=== PATIENT | female | born 1955 | race Caucasian/White ===

== ENCOUNTER 2024-12-30 01:36 | Emergency (ER) | payer MEDICARE, OTHER ==
[~2024-12-30] VITALS: Ht 160 cm; Wt 71.0 kg
[2024-12-30] MEDS: ONDANSETRON HCL 4 MG/2 ML VIAL IV ONE (01:33)
[2024-12-30] MEDS: SODIUM CHLORIDE 0.9% 1,000 ML IVB ONE (01:33)
[2024-12-30 01:34] LABS: Hematocrit 31.0 % (36.0-46.0); Hemoglobin 9.8 g/dL (12.2-16.2); Mean Corpuscular Hemoglobin 22.4 pg (28.0-32.0); Mean Corpuscular Volume 70.7 fL (80.0-100.0)
[2024-12-30 01:40] VITALS: O2SAT 98
[2024-12-30 01:49] LABS: Alanine Aminotransferase 13 U/L (7-40); Albumin 4.3 g/dL (3.2-4.8); Alkaline Phosphatase 115 U/L (46-116); Anion Gap 14 (5-15); BUN/Creatinine Ratio 25.3 (10.0-20.0); Bilirubin, Total 0.5 mg/dL (0.2-1.0); Blood Urea Nitrogen 19 mg/dL (9-23); Calcium 9.4 mg/dL (8.7-10.4); Chloride 100 mmol/L (98-107); Lipase 41 U/L (12-53); Potassium 3.8 mmol/L (3.5-5.1); Total Protein 7.0 g/dL (5.7-8.2)
[2024-12-30 01:50] LABS: Carbon Dioxide 19 mmol/L (20-31); Glucose 126 mg/dL (74-106); Sodium 133 mmol/L (136-145)
--- NOTE | 2024-12-30 01:54 | ED.PDOC ---
GI ASSESSMENT HPI Comments 69-year-old female who came to ER via EMS for abdominal pain. Patient states for the past few hours, she has been having intermittent episodes of suprapubic abdominal pain, associated nausea and vomiting. She states she is constipated, bowel movement was 2 days ago. Around 12 midnight she started having bouts of non bloody diarrhea. 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 Hx Family History Family History: Reviewed,noncontributory to illness Social History Smoker: Non-Smoker Alcohol: Denies ETOH Use Drugs: Denies Drug Use Lives In: Home Constitutional: denies: chills, diaphoresis, fatigue, fever, malaise, sweats, weakness, others EENTM: denies: blurred vision, double vision, ear bleeding, ear discharge, ear drainage, ear pain, ear ringing, eye pain, eye redness, hearing loss, mouth pain, mouth swelling, nasal discharge, nose bleeding, nose congestion, nose pain, photophobia, tearing, throat pain, throat swelling, voice changes, others Respiratory: denies: cough, hemoptysis, orthopnea, SOB at rest, shortness of breath, SOB with excertion, stridor, wheezing, others Cardiovascular: denies: chest pain, dizzy spells, diaphoresis, Dyspnea on exer tion, edema, irregular heart beat, left arm pain, lightheadedness, palpitations, PND, syncope, others Gastrointestinal: reports: abdominal pain, constipated, nausea, vomiting; denies: abdomen distended, blood streaked bowels, diarrhea, dysphagia, difficulty swallowing, hematemesis, melena, poor appetite, poor fluid intake, rectal bleeding, rectal pain, others Genitourinary: denies: abnormal vagina bleeding, burning, dyspareunia, dysuria, flank pain, frequency, hematuria, incontinence, pain, , vagina discharge, urgency, others Neurological: denies: dizziness, fainting, headache, left sided numbness, left sided weakness, numbness, paresthesia, pre-existing deficit, right sided numbness, right sided weakness, seizure, speech problems, tingling, tremors, weakness, others Musculoskeletal: denies: back pain, gout, joint pain, joint swelling, muscle pain, muscle stiffness, neck pain, others Integumetry: denies: bruises, change in color, change in hair/nails, dryness, laceration, lesions, lumps, rash, wounds, others Allergic/Immunocompromised: denies: Difficulty Healing, Frequent Infections, Hives, Itching, others Hematologic/Lymphatic: denies: anemia, blood clots, easy bleeding, easy bruising, swollen glands, others Endocrine: denies: excessive hunger, excessive sweating, excessive thirst, excessive urination, flushing, intolerance to cold, intolerance to heat, unexplained weight gain, unexplained weight loss, others Psychiatric: denies: anxiety, bipolar disorder, depression, hopeless, panic disorder, schizophrenia, sleepless, suicidal, others Physical Exam General Appearance: No Apparent Distress, Normal HEENT: Normal ENT Inspection, Pharynx Normal, TMs Normal Neck: Full Range of Motion, Non-Tender, Normal, Normal Inspection Respiratory: Chest Non-Tender, Lungs Clear, No Accessory Muscle Use, No Respiratory Distress, Normal Breath Sounds Cardiovascular: No Edema, No JVD, No Murmur, No Gallop, Normal Peripheral Pulses, Regular Rate/Rhythm Breast Exam: Deferred Gastrointestinal: No Organomegaly, No Pulsatile Mass, Normal Bowel Sounds, Soft, Suprapubic, Tenderness Genitalia: Deferred Pelvic: Deferred Rectal: Deferred Extremities: No calf tenderness, Normal capillary refill, Normal inspection, Normal range of motion, Non-tender, No pedal edema Musculoskeletal : Apperance: Normal Neurologic: Alert, research coordinator II-XII nml as Tested, No Motor Deficits, Normal Affect, Normal Mood, No Sensory Deficits Cerebellar Function: Normal Reflexes: Normal Skin: Dry, Normal Color, Warm Lymphatic: No Adenopathy Was a procedure done? Was a procedure done?: No GI differential Dx Differential Diagnosis: Constipation, Diverticular disease, Gastritis/PUD, Gastroenteritis, Pancreatitis, UTI, Urolithiasis X-Ray, Labs, Meds, VS Vital Signs Date Time Temp Pulse Resp B/P (MAP) Pulse Ox O2 Delivery O2 Flow Rate FiO2 12/30/24 01:40 98 Room Air* 0 21 12/30/24 01:37 98.4 62 18 152/72 100 98.4 12/30/24 01:31 98.3 62 16 143/71 (95) 98 98.3 Lab Test 12/30/24 01:55 12/30/24 01:30 Range/Units White Blood Count 12.5 H 4.4-10.8 10^3/uL Red Blood Count 4.38 4.0-5.20 10^6/uL Hemoglobin 9.8 L 12.2-16.2 g/dL Hematocrit 31.0 L 36.0-46.0 % Mean Corpuscular Volume 70.7 L 80.0-100.0 fL Mean Corpuscular Hemoglobin 22.4 L 28.0-32.0 pg Mean Corpuscular Hemoglobin Concent 31.7 L 32.0-36.0 g/dL Red Cell Distribution Width 16.6 H 11.8-14.3 % Platelet Count 411 140-450 10^3/uL Mean Platelet Volume 7.8 6.9-10.8 fL Neutrophils (%) (Auto) 87.6 H 37.0-80.0 % Lymphocytes (%) (Auto) 8.6 L 10.0-50.0 % Monocytes (%) (Auto) 3.6 0.0-12.0 % Basophils (%) (Auto) 0.2 0.0-2.0 % Neutrophils # (Auto) 11.0 H 1.6-8.6 10 ^3/uL Lymphocytes # (Auto) 1.1 0.4-5.4 10 ^3/uL Monocytes # (Auto) 0.5 0-1.3 10 ^3/uL Sodium Level 133 L 136-145 mmol/L Potassium Level 3.8 3.5-5.1 mmol/L Chloride Level 100 98-107 mmol/L Carbon Dioxide Level 19 L 20-31 mmol/L Anion Gap 14 5-15 Blood Urea Nitrogen 19 9-23 mg/dL Creatinine 0.75 0.550-1.02 mg/dL Glomerular Filtration Rate Calc 86 >90 mL/min BUN/Creatinine Ratio 25.3 H 10.0-20.0 Serum Glucose 126 H 74-106 mg/dL Calcium Level 9.4 8.7-10.4 mg/dL Total Bilirubin 0.5 0.2-1.0 mg/dL Aspartate Amino Transferase (AST) 18 13-40 U/L Alanine Aminotransferase (ALT) 13 7-40 U/L Alkaline Phosphatase 115 46-116 U/L Total Protein 7.0 5.7-8.2 g/dL Albumin 4.3 3.2-4.8 g/dL Lipase 41 12-53 U/L Urine Color Light-orange Yellow Urine Clarity Turbid H Clear Urine pH 8.0 5.0-9.0 Urine Specific [place] 1.020 1.001-1.035 Urine Protein Negative Negative Urine Ketones 2+ H Negative Urine Blood Negative Negative /uL Urine Nitrite Negative Negative Urine Bilirubin Negative Negative Urine Urobilinogen Normal Negative mg/dL Urine Leukocyte Esterase Negative Negative /uL Urine RBC None seen 0 - 4 /hpf Urine Microscopic WBC < 1 0-5 /HPF Urine Squamous Epithelial Cells None seen <5 /hpf Urine Amorphous Crystals Few None Seen /hpf Urine Bacteria None seen None Seen /hpf Urine Glucose Normal Normal mg/dL Current Medications Medications (Trade) Dose Ordered Sig/Jo Route Start Time Stop Time Status Last Admin Sodium Chloride 1,000 ml @ 1,000 mls/hr Q1H ONCE IVB 12/30/24 02:00 12/30/24 02:59 DC 12/30/24 01:33 Lorazepam (Ativan Tablet) 0.5 mg ONCE ONCE PO 12/30/24 02:45 12/30/24 02:46 DC 12/30/24 02:46 Acetaminophen/ Hydrocodone Bitart ([place] 5/325MG Tab) 1 tab ONCE ONCE PO 12/30/24 02:45 12/30/24 02:46 DC 12/30/24 02:46 Time of 1ST Reevaluation: 01:50 Reevaluation 1ST: Unchanged Patient Education/Counseling: Diagnosis, Treatment Family Education/Counseling: No Family Present SEPSIS Sepsis Screen Physician Orders Ct Ab Pel With Iv Con Only (12/30/24 01:48) Vital Signs Date Time Temp Pulse Resp B/P (MAP) Pulse Ox O2 Delivery O2 Flow Rate FiO2 12/30/24 01:40 98 Room Air* 0 21 12/30/24 01:37 98.4 62 18 152/72 100 98.4 12/30/24 01:31 98.3 62 16 143/71 (95) 98 98.3 Laboratory Tests Test 12/30/24 01:55 White Blood Count 12.5 10^3/uL (4.4-10.8) H Medications Medications Dose Ordered Sig/Jo Route Start Time Stop Time Status Last Admin Dose Admin Acetaminophen/ Hydrocodone Bitart 1 tab ONCE ONCE PO 12/30/24 02:45 12/30/24 02:46 DC 12/30/24 02:46 Lorazepam 0.5 mg ONCE ONCE PO 12/30/24 02:45 12/30/24 02:46 DC 12/30/24 02:46 Sodium Chloride 1,000 ml @ 1,000 mls/hr Q1H ONCE IVB 12/30/24 02:00 12/30/24 02:59 DC 12/30/24 01:33 Departure 1 Departure Time of Disposition: 04:18 Impression: Primary Impression: Non-specific colitis Additional Impressions: Intractable abdominal pain Nausea and vomiting Dehydration Disposition: ADMITTED INPATIENT Admit to: Med Surg Condition: Guarded Discharged With: Self Comments 69-year-old female with abdominal pain and nausea and vomiting. White blood cell count is elevated 12.5 . She has ketones in her urine. CT of the abdomen and pelvis shows colitis. She has some gallstones but no right upper quadrant pain or tenderness. Patient was given IV fluids and IV antibiotics. Patient will need to be admitted for supportive care and further workup. Critical Care Note Critical Care Time?: Yes (35 min-critical care time only) Critical care comment: Total critical care time: Approximately 36 minutes Due to a high probability of clinically significant, life threatening deterioration, the patient required my highest level of preparedness to intervene emergently and I personally spent this critical care time directly and personally managing the patient. This critical care time included obtaining a history; examining the patient; pulse oximetry; ordering and review of studies; arranging urgent treatment with development of a management plan; evaluation of patient's response to treatment; frequent reassessment; and, discussions with other providers. This critical care time was performed to assess and manage the high probability of imminent, life-threatening deterioration that could result in multi-organ failure. It was exclusive of separately billable procedures and treating other patients. Stability Stability form required: No Heart Score Heart Score: Heart Score Response (Comments) Value History N/A 0 EKG N/A 0 Age N/A 0 Risk Factors N/A 0 Troponin N/A 0 Total 0 I personally scribed for GERALDO AVILEZ MD ([email or web address]) on 12/30/24 at 01:54. Electronically submitted by Davide Estrella ([email or web address]). GERALDO AVILEZ MD Dec 30, 2024 01:54
[2024-12-30] MEDS: IOHEXOL 300 MG/ML 100ML BOTTLE IJ ONE ×2 (02:24)
[2024-12-30 02:26] LABS: Urine Amorphous Crystal FEW /hpf (None Seen); Urine Protein, UAD Negative (Negative)
[2024-12-30] MEDS: LORazepam 0.5 MG TAB PO ONE (02:46)
[2024-12-30] MEDS: HYDROcodone-ACET 5/325MG TAB PO ONE (02:46)
--- NOTE | 2024-12-30 03:52 | DVH ---
Exam: CT CT AB PEL WITH IV CON ONLY History: LLQ pain COMPARISON: None Technique: Multidetector spiral CT of the abdomen and pelvis was performed from lung bases to pubic s ymphysis. Intravenous contrast was administered during this examination. Portal venous imaging was o btained. Axial, coronal and sagittal multiplanar reformats were performed by the technologist on a [employer] workstation. Radiation Dose : 1. Abdomen/Pelvis: CTDIvol 21.47mGy, DLP 1225.34 mGy*cm. CONTRAST: Type of contrast: Omnipaque 300 Contrast injected: 100 ml Findings: Lung Bases: No acute or significant lung base finding. Normal heart size. No pleural or pericardial effusion. Liver: The liver is normal in size. 7 mm hepatic cyst. No focal lesions. Normal hepatic vascular en hancement. Gallbladder and Biliary Tree: Cholelithiasis. Spleen: Unremarkable Pancreas: The pancreas is normal in appearance without focal lesions or abnormal enhancement. Adrenal Glands: Unremarkable Kidneys: No hydronephrosis. Bladder: Unremarkable Bowel: The stomach is grossly normal in appearance. Small bowel is normal in caliber and distribution . Moderate diffuse circumferential wall thickening and intramural edema of the descending and sigmoid colon extending to and involving the rectum consistent with colitis and/or proctitis. The appendix i s normal. Ascites: Absent Lymphadenopathy: No mesenteric, retroperitoneal or periportal lymphadenopathy. Abdominal Wall and Mesentery: Unremarkable. Vasculature: The visualized abdominal aorta is normal in size and caliber. Atherosclerotic vascular c alcifications. Abdominal and pelvic vessels demonstrate normal enhancement. Pelvic Organs: Unremarkable Musculoskeletal: No aggressive focal bony lesions, acute fractures or dislocation. IMPRESSION: 1. Colitis, infectious versus inflammatory, of the descending and sigmoid colon and proctitis. 2. Cholelithiasis. Radiation optimization: All CT scans at this facility use at least one of these dose optimization lis hniques: automated exposure control mA and/or kV adjustment per patient size (includes targeted exam s where dose is matched to clinical indication) or iterative reconstruction.
--- NOTE | 2024-12-30 06:37 | DVHINCON2 ---
LIZZ MEREDITH [employer] 12/30/24 0637: Date of service: Dec 30, [address] Araiza Reason for Consultation Medical management History of Present Illness 69-year-old Female presents with complaints of abdominal pain three weeks due to constipation. Patient endorses she was prescribed laxatives by her PCP which caused diarrhea last night. Patient endorses she was feeling nauseous when she was constipated. At this time, patient has not been taking antibiotics. Denies tarry stools or hematochezia. During the emergency department evaluation W 12.5, H&H 9.8/31.0, [id number]. NA 133, K3.8, BUN 19, 0.75, GFR 86. LA 1.1 UA negative for infection. Patient endorses as she lives with roommates. Upon standing up, denies dizziness, and was able to stand up independently. Has been hemodynamically stable since she arrived in the emergency department. There are no complaints of fevers, chills, shortness of breath, chest, pain, palpitations. Allergies: Coded Allergies: NO KNOWN ALLERGIES (Unverified , 12/30/24) Home Meds Active Scripts Levofloxacin Hemihydrate (LEVAQUIN 500 MG) 500 Mg Tab, 500 MG PO DAILY for 5 Days, #5 TAB Prov:LIZZ MEREDITH [employer] 12/30/24 Review of Systems 10 systems reviewed and negative, except as per HPI Vital Signs Vital Signs Date Time Temp Pulse Resp B/P (MAP) Pulse Ox O2 Delivery O2 Flow Rate FiO2 12/30/24 04:00 70 146/74 (98) 91 12/30/24 01:40 Room Air* 0 21 12/30/24 01:37 98.4 18 98.4 Physical Exam GENERAL: Patient appearing stated age, in no acute distress. HEENT: Pupils equal and reactive to light and accommodation. Extraocular muscles intact. Mucous membranes moist. Conjunctivae pink. Anicteric sclerae. LUNGS: Bilateral air entry. No wheezes, rhonchi or rales. HEART: Regular rate and rhythm. Normal S1 and S2. ABDOMEN: BS normoactive, soft, nontender, and nondistended. No CVA tenderness. EXTREMITIES: No clubbing, cyanosis, edema. No calf tenderness. Pedal pulses 2+. NEUROLOGICAL: The patient is alert and oriented times 3. CN II-XII intact. No focal deficits on gross sensory or motor examination. Labs/Diagnostic Data Labs Test 12/30/24 04:40 12/30/24 01:55 12/30/24 01:30 Range/Units Lactic Acid Level 1.1 0.4-2.0 mmol/L White Blood Count 12.5 H 4.4-10.8 10^3/uL Red Blood Count 4.38 4.0-5.20 10^6/uL Hemoglobin 9.8 L 12.2-16.2 g/dL Hematocrit 31.0 L 36.0-46.0 % Mean Corpuscular Volume 70.7 L 80.0-100.0 fL Mean Corpuscular Hemoglobin 22.4 L 28.0-32.0 pg Mean Corpuscular Hemoglobin Concent 31.7 L 32.0-36.0 g/dL Red Cell Distribution Width 16.6 H 11.8-14.3 % Platelet Count 411 140-450 10^3/uL Mean Platelet Volume 7.8 6.9-10.8 fL Neutrophils (%) (Auto) 87.6 H 37.0-80.0 % Lymphocytes (%) (Auto) 8.6 L 10.0-50.0 % Monocytes (%) (Auto) 3.6 0.0-12.0 % Basophils (%) (Auto) 0.2 0.0-2.0 % Neutrophils # (Auto) 11.0 H 1.6-8.6 10 ^3/uL Lymphocytes # (Auto) 1.1 0.4-5.4 10 ^3/uL Monocytes # (Auto) 0.5 0-1.3 10 ^3/uL Sodium Level 133 L 136-145 mmol/L Potassium Level 3.8 3.5-5.1 mmol/L Chloride Level 100 98-107 mmol/L Carbon Dioxide Level 19 L 20-31 mmol/L Anion Gap 14 5-15 Blood Urea Nitrogen 19 9-23 mg/dL Creatinine 0.75 0.550-1.02 mg/dL Glomerular Filtration Rate Calc 86 >90 mL/min BUN/Creatinine Ratio 25.3 H 10.0-20.0 Serum Glucose 126 H 74-106 mg/dL Calcium Level 9.4 8.7-10.4 mg/dL Total Bilirubin 0.5 0.2-1.0 mg/dL Aspartate Amino Transferase (AST) 18 13-40 U/L Alanine Aminotransferase (ALT) 13 7-40 U/L Alkaline Phosphatase 115 46-116 U/L Total Protein 7.0 5.7-8.2 g/dL Albumin 4.3 3.2-4.8 g/dL Lipase 41 12-53 U/L Urine Color Light-orange Yellow Urine Clarity Turbid H Clear Urine pH 8.0 5.0-9.0 Urine Specific [place] 1.020 1.001-1.035 Urine Protein Negative Negative Urine Ketones 2+ H Negative Urine Blood Negative Negative /uL Urine Nitrite Negative Negative Urine Bilirubin Negative Negative Urine Urobilinogen Normal Negative mg/dL Urine Leukocyte Esterase Negative Negative /uL Urine RBC None seen 0 - 4 /hpf Urine Microscopic WBC < 1 0-5 /HPF Urine Squamous Epithelial Cells None seen <5 /hpf Urine Amorphous Crystals Few None Seen /hpf Urine Bacteria None seen None Seen /hpf Urine Glucose Normal Normal mg/dL Assessment Colitis / Proctitis Anemia This patients chart was reviewed in its entirety, including lab work, imaging, physical assessment, history taking. During the emergency department evaluation CBC W 12.5, H&H 9.8/31.0, PLT 411. Na 133, K3.8, BUN 19, creatinine 0.75, GFR 86, LA 1.1. UA negative for infection. CT of the abdomen and pelvis was interpreted per the radiologist and reviewed per myself. Impression reads colitis, infectious versus inflammatory, of the descending and sigmoid colon, proctitis. Patient is alert and oriented times four. Hemodynamically stable. Afebrile 98.4. BP 128/63, HR 60, oxygen saturation 98% on room air. Is able to stand independently with no complaints of dizziness. Currently endorsed that she lives with roommates. Patient has been experiencing constipation over the previous month. When I spoke to the patient, she states that her diarrhea was caused by stool softeners (red gel cap) that were prescribed by her PCP. And l ast time she felt nauseous was with constipation. Additionally, there have been no complaints of black Tarry stool or hematochezia. While in the emergency department was treated with 1 L normal saline bolus along with a dose of Flagyl and Rocephin IV. She's also given oral Ativan and [place] for her anxiety and pain. Plan/Recommendation At this time, I discussed outpatient management with a patient which she is in agreement with. The patient will be discharged home from the emergency depa rtment with close outpatient follow up. O employment case manager, Pattie has been consulted to establish home safety evaluation, outpatient follow up with gastroenterology, follow up at [facility] urgent care for repeat labs CBC for anemia and BMP. The patient was advised to increase her fiber and water intake to prevent constipation. Also, given the finding of proctitis, I did send a prescription to her pharmacy for oral anabiotic. The patient was provided with strict ER precautions, including, but not limited to fever, chills, dizziness, shortness of breath, chest, pain, palpitations, nausea, vomiting, continue diarrhea, hematemesis, hematochezia, melena. If any of these occur return to the nearest emergency department for further evaluation and treatment. Plan discussed with: Patient ABBY WALLER MD 01/01/25 1628: Allergies: Coded Allergies: NO KNOWN ALLERGIES (Unverified , 12/30/24) Home Meds Active Scripts Levofloxacin Hemihydrate (LEVAQUIN 500 MG) 500 Mg Tab, 500 MG PO DAILY for 5 Days, #5 TAB Prov:LIZZ MEREDITH NP 12/30/24 Additional Comments Additional Comments Additional Comments Patient's chart is reviewed and discussed with the nurse practitioner. Patient is seen and evaluated by [employer] in the ER and I agree with his evaluation, documentation, assessment and care plan as outlined. LIZZ MEREDITH NP Dec 30, 2024 06:37 ABBY WALLER MD Jan 01, 2025 16:28
[2024-12-30] MEDS ORDERED: LEVO500T91 PO (06:40)
[2024-12-30 08:42] VITALS: BP 135/74; PULSE 60; RESP 18; TEMP 98.4; O2SAT 99
== END 2024-12-30 08:49 | disposition home or self-care (01) ==
LOC: ER 01:36 → EDBD 01:36 → ER 08:49
DX: K52.9 Noninfective gastroenteritis and colitis, unspecified (principal); R11.2 Nausea with vomiting, unspecified; R10.9 Unspecified abdominal pain; E86.0 Dehydration; F41.9 Anxiety disorder, unspecified; E78.5 Hyperlipidemia, unspecified
CPT/HCPCS: 36415; 74177; 80053; 81001; 83605; 83690; 85025; 87040; 96361; 96365; 96366; 96368; 99285; J0696; J3490; J7030; Q9967; 99291

== ENCOUNTER 2025-01-06 07:14 | Inpatient (IN) | payer OTHER ==
[~2025-01-06] VITALS: Ht 160 cm; Wt 76.8 kg
[~2025-01-06 07:14] MED LIST: LEVO500T91 PO
--- NOTE | 2025-01-06 07:38 | ED.PDOC ---
GI ASSESSMENT HPI Comments 69 y/o F, BIBA, with PMHx of anxiety, HTN , HLD presents to the ED for CC of abdominal pain. EMS reports, patient is coming from home where she c/o LLQ abdominal pain [id number] d/t being unable to have a bowel movement. Patient states, to have had multiple hard pebble-like stools since, commencement of symptoms. Patient endorses, taking Metamucil this morning (01/06/25) with no relief. At this time patient c/o "sharp" 7/10 LLQ abdominal pain. Patient denies abdominal cramping, vomiting, or inability to pass gas. Chief Complaint: Abdominal Pain Time Seen by MD: 07:00 Reviewed Notes: Nurses Notes, Pepper Cutter Notes, Medications, Allergies Allergies: Coded Allergies: NO KNOWN ALLERGIES (Unverified , 12/30/24) Home Meds Active Scripts Levofloxacin Hemihydrate (LEVAQUIN 500 MG) 500 Mg Tab, 500 MG PO DAILY for 5 Days, #5 TAB Prov:LIZZ MEREDITH NP 12/30/24 Information Source: Patient, Emergency Med Personnel Mode of Arrival: EMS Timing: Weeks Duration: Since onset Prehospital treatment: None Vomitus: None Stool: Impaction Severity: Moderate Recent: None Recent Hx of: None Pain Location: LLQ Modifying Factors: Nothing Associated sign and symptoms: Constipation, Abdominal Pain Past Medical History PAST MEDICAL HISTORY: Anxiety, High Lipids Surgical History: Denies all surgeries 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 AND 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 History: Denies all SAFE AND 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 MECHANIC Hx Family History Family History: Reviewed,noncontributory to illness Social History Smoker: Non-Smoker Alcohol: Denies ETOH Use Drugs: Denies Drug Use Lives In: Home Constitutional: denies: chills, diaphoresis, fatigue, fever, malaise, sweats, weakness, others EENTM: denies: blurred vision, double vision, ear bleeding, ear discharge, ear drainage, ear pain, ear ringing, eye pain, eye redness, hearing loss, mouth pain, mouth swelling, nasal discharge, nose bleeding, nose congestion, nose pain, photophobia, tearing, throat pain, throat swelling, voice changes, others Respiratory: denies: cough, hemoptysis, orthopnea, SOB at rest, shortness of breath, SOB with excertion, stridor, wheezing, others Cardiovascular: denies: chest pain, dizzy spells, diaphoresis, Dyspnea on exertion, edema, irregular heart beat, left arm pain, lightheadedness, palpitations, PND, syncope, others Gastrointestinal: reports: abdominal pain, constipated; denies: abdomen distended, blood streaked bowels, diarrhea, dysphagia, difficulty swallowing, hematemesis, melena, nausea, poor appetite, poor fluid intake, rectal bleeding, rectal pain, vomiting, others Genitourinary: denies: abnormal vagina bleeding, burning, dyspareunia, dysuria, flank pain, frequency, hematuria, incontinence, pain, , vagina discharge, urgency, others Neurological: denies: dizziness, fainting, headache, left sided numbness, left sided weakness, numbness, paresthesia, pre-existing deficit, right sided numbness, right sided weakness, seizure, speech problems, tingling, tremors, weakness, others Musculoskeletal: denies: back pain, gout, joint pain, joint swelling, muscle pain, muscle stiffness, neck pain, others Integumetry: denies: bruises, change in color, change in hair/nails, dryness, laceration, lesions, lumps, rash, wounds, others Allergic/Immunocompromised: denies: Difficulty Healing, Frequent Infections, Hives, Itching, others Hematologic/Lymphatic: denies: anemia, blood clots, easy bleeding, easy bruising, swollen glands, others Endocrine: denies: excessive hunger, excessive sweating, excessive thirst, excessive urination, flushing, intolerance to cold, intolerance to heat, unexplained weight gain, unexplained weight loss, others Psychiatric: denies: anxiety, bipolar disorder, depression, hopeless, panic disorder, schizophrenia, sleepless, suicidal, others All Other Systems: Reviewed and Negative Physical Exam General Appearance: Moderate Distress, Obese HEENT: Normal ENT Inspection, Pharynx Normal, TMs Normal Neck: Full Range of Motion, Non-Tender, Normal, Normal Inspection Respiratory: Chest Non-Tender, Lungs Clear, No Accessory Muscle Use, No Respiratory Distress, Normal Breath Sounds Cardiovascular: No Edema, No JVD, No Murmur, No Gallop, Normal Peripheral Pulses, Regular Rate/Rhythm Breast Exam: Deferred Gastrointestinal: Diffuse, No Organomegaly, No Pulsatile Mass, Normal Bowel Sounds, Soft, Tenderness Genitalia: Deferred Pelvic: Deferred Rectal: Deferred Extremities: No calf tenderness, Normal capillary refill, Normal inspection, Normal range of motion, Non-tender, No pedal edema Musculoskeletal : Apperance: Normal Neurologic: Alert, senior planner II-XII nml as Tested, Motor Weakness, Normal Affect, Normal Mood, No Sensory Deficits Cerebellar Function: Normal Reflexes: Normal Skin: Dry, Normal Color, Warm Lymphatic: No Adenopathy Was a procedure done? Was a procedure done?: No GI differential Dx Differential Diagnosis: Bowel Obstruction, Constipation X-Ray, Labs, Meds, VS Vital Signs Date Time Temp Pulse Resp B/P (MAP) Pulse Ox O2 Delivery O2 Flow Rate FiO2 01/06/25 07:42 99.8 62 18 135/69 (91) 98 99.8 01/06/25 07:42 62 18 98 Room Air 01/06/25 07:41 62 15 135/69 01/06/25 07:21 98.6 68 18 140/84 100 98.6 Lab Test 01/06/25 08:00 01/06/25 07:37 Range/Units Urine Color Colorless Yellow Urine Clarity Clear Clear Urine pH 7.5 5.0-9.0 Urine Specific [place] 1.006 1.001-1.035 Urine Protein Negative Negative Urine Ketones Negative Negative Urine Blood Negative Negative /uL Urine Nitrite Negative Negative Urine Bilirubin Negative Negative Urine Urobilinogen Normal Negative mg/dL Urine Leukocyte Esterase Negative Negative /uL Urine RBC None seen 0 - 4 /hpf Urine Microscopic WBC 1 0-5 /HPF Urine Squamous Epithelial Cells Few <5 /hpf Urine Bacteria None seen None Seen /hpf Urine Glucose Normal Normal mg/dL White Blood Count 7.7 4.4-10.8 10^3/uL Red Blood Count 3.89 L 4.0-5.20 10^6/uL Hemoglobin 8.8 L 12.2-16.2 g/dL Hematocrit 27.7 L 36.0-46.0 % Mean Corpuscular Volume 71.2 L 80.0-100.0 fL Mean Corpuscular Hemoglobin 22.6 L 28.0-32.0 pg Mean Corpuscular Hemoglobin Concent 31.8 L 32.0-36.0 g/dL Red Cell Distribution Width 17.0 H 11.8-14.3 % Platelet Count 334 140-450 10^3/uL Mean Platelet Volume 7.5 6.9-10.8 fL Neutrophils (%) (Auto) 65.0 37.0-80.0 % Lymphocytes (%) (Auto) 25.5 10.0-50.0 % Monocytes (%) (Auto) 5.5 0.0-12.0 % Eosinophils (%) (Auto) 3.2 0.0-7.0 % Basophils (%) (Auto) 0.8 0.0-2.0 % Neutrophils # (Auto) 5.0 1.6-8.6 10 ^3/uL Lymphocytes # (Auto) 2.0 0.4-5.4 10 ^3/uL Monocytes # (Auto) 0.4 0-1.3 10 ^3/uL Eosinophils # (Auto) 0.2 0-0.8 10 ^3/uL Basophils # (Auto) 0.1 0-0.2 10 ^3/uL Nucleated Red Blood Cells 0.0 % Sodium Level 140 136-145 mmol/L Potassium Level 3.3 L 3.5-5.1 mmol/L Chloride Level 107 98-107 mmol/L Carbon Dioxide Level 22 20-31 mmol/L Anion Gap 11 5-15 Blood Urea Nitrogen 15 9-23 mg/dL Creatinine 0.90 0.550-1.02 mg/dL Glomerular Filtration Rate Calc 69 >90 mL/min BUN/Creatinine Ratio 16.7 10.0-20.0 Serum Glucose 104 74-106 mg/dL Calcium Level 9.3 8.7-10.4 mg/dL Total Bilirubin 0.2 0.2-1.0 mg/dL Aspartate Amino Transferase (AST) 18 13-40 U/L Alanine Aminotransferase (ALT) 12 7-40 U/L Alkaline Phosphatase 98 46-116 U/L Total Protein 6.7 5.7-8.2 g/dL Albumin 4.0 3.2-4.8 g/dL Lipase 47 12-53 U/L Current Medications Medications (Trade) Dose Ordered Sig/Jo Route Start Time Stop Time Status Last Admin Ondansetron HCl (Zofran) 4 mg ONCE ONCE IV 01/06/25 07:30 01/06/25 07:31 DC 01/06/25 08:00 Morphine Sulfate 4 mg ONCE ONCE IV 01/06/25 07:30 01/06/25 07:31 DC 01/06/25 07:41 Sodium Chloride 500 ml @ 500 mls/hr Q1H ONCE IVB 01/06/25 07:30 01/06/25 08:29 DC 01/06/25 07:40 The patient is CBC shows a hemoglobin of 8.8 and hematocrit 27.7 The patient's urine test is negative for UTI The CAT scan of the abdomen and pelvis shows: IMPRESSION: 1. Moderate stool throughout the colon. 2. Cholelithiasis. 3. Additional nonacute findings as described above. The patient was given morphine for the pain The patient was given Zofran 4 mg IV push for the nausea The patient was given normal saline as a bolus of 500 cc At this time, the patient is being admitted to the hospitalist The patient understands and agrees with the management. Images Reviewed?: Images reviewed and evaluated by me Time of 1ST Reevaluation: 07:30 Reevaluation 1ST: Unchanged Patient Education/Counseling: Diagnosis, Treatment, Prognosis Family Education/Counseling: No Family Present SEPSIS Sepsis Screen Physician Orders Ct Ab Pel Wo Con-No Oral Or Iv (01/06/25 07:23) Heplock Iv (01/06/25 07:23) Vital Signs Date Time Temp Pulse Resp B/P (MAP) Pulse Ox O2 Delivery O2 Flow Rate FiO2 01/06/25 07:42 99.8 62 18 135/69 (91) 98 99.8 01/06/25 07:42 62 18 98 Room Air 01/06/25 07:41 62 15 135/69 01/06/25 07:21 98.6 68 18 140/84 100 98.6 Laboratory Tests Test 01/06/25 07:37 White Blood Count 7.7 10^3/uL (4.4-10.8) Medications Medications Dose Ordered Sig/Jo Route Start Time Stop Time Status Last Admin Dose Admin Morphine Sulfate 4 mg ONCE ONCE IV 01/06/25 07:30 01/06/25 07:31 DC 01/06/25 07:41 Ondansetron HCl 4 mg ONCE ONCE IV 01/06/25 07:30 01/06/25 07:31 DC 01/06/25 08:00 Sodium Chloride 500 ml @ 500 mls/hr Q1H ONCE IVB 01/06/25 07:30 01/06/25 08:29 DC 01/06/25 07:40 Departure 1 Departure Time of Disposition: 08:57 Impression: Primary Impression: Intractable abdominal pain Additional Impression: Cholelithiasis Qualified Codes: K80.20 - Calculus of gallbladder without cholecystitis without obstruction Disposition: ADMITTED INPATIENT Admit to: Med Surg Condition: Fair Critical Care Note Critical Care Time?: No Stability Stability form required: Yes Unstable for transfer: ED Physician Assesment (Clinical assesment) Heart Score Heart Score: Heart Score Response (Comments) Value History N/A 0 EKG N/A 0 Age N/A 0 Risk Factors N/A 0 Troponin N/A 0 Total 0 I personally scribed for YOANA LAWTON MD ([email or web address]) on 01/06/25 at 07:38. Electronically submitted by Hailee Simon [email or web address]). YOANA LAWTON MD Jan 06, 2025 07:38
[2025-01-06] MEDS: SODIUM CHLORIDE 0.9% 500 ML IVB ONE (07:40)
[2025-01-06] MEDS: MORPHINE SULFATE 4 MG/ML SYR/VIAL IV ONE (07:41)
[2025-01-06 07:59] LABS: Hematocrit 27.7 % (36.0-46.0); Hemoglobin 8.8 g/dL (12.2-16.2); Mean Corpuscular Hemoglobin 22.6 pg (28.0-32.0); Mean Corpuscular Volume 71.2 fL (80.0-100.0); Nucleated Red Blood Cells % 0.0 %
[2025-01-06] MEDS: ONDANSETRON HCL 4 MG/2 ML VIAL IV ONE (08:00)
--- NOTE | 2025-01-06 08:28 | DVH ---
CLINICAL INFORMATION: 69 years old, Female; pain. TECHNIQUE: Axial CT images of the abdomen and pelvis were obtained without IV contrast. Coronal and sagittal reformatted images were obtained, reviewed, and stored. Evaluation of the parenchymal organs is limited without IV contrast. Evaluation of the bowel and mesentery is limited without oral contrast. All CT scans at this medical facility are performed using dose modulation techniques as appropriate to a performed exam including the following: Automated exposure control was utilized; adjustment of the MA and/or KV according to patient size; and use of iterative reconstruction technique. CTDIvol = 14.87 mGy DLP = 815.85 mGy-cm COMPARISON: CT CT AB PEL WITH IV CON ONLY on DOS: 12/30/24 FINDINGS: Lung bases: Lung bases are clear. Liver: Grossly unremarkable in its noncontrast enhanced appearance. No abnormal density or focal lesion identified. Biliary: Small calcified gallstone in the gallbladder. Spleen: Unremarkable. Pancreas: Grossly unremarkable in its noncontrast enhanced appearance. Adrenal glands: Grossly unremarkable. Kidneys: No hydronephrosis. No renal or ureteral calculi. Aorta/Vascular: Scattered atherosclerotic calcification. No abdominal aortic aneurysm. Lymph nodes: No mass or lymphadenopathy. Bowel/mesentery: No small bowel obstruction. No free air or free fluid. Appendix is visualized and appears unremarkable. Moderate stool throughout the colon. Pelvic organs: Grossly unremarkable. Bladder: Unremarkable. No mass. Abdominal wall: No mass or hernia. Bones: No acute fracture or suspicious intraosseous lesion. IMPRESSION: 1. Moderate stool throughout the colon. 2. Cholelithiasis. 3. Additional nonacute findings as described above.
[2025-01-06 08:33] LABS: Urine Protein, UAD Negative (Negative)
[2025-01-06 08:38] LABS: Alanine Aminotransferase 12 U/L (7-40); Albumin 4.0 g/dL (3.2-4.8); Alkaline Phosphatase 98 U/L (46-116); Anion Gap 11 (5-15); BUN/Creatinine Ratio 16.7 (10.0-20.0); Blood Urea Nitrogen 15 mg/dL (9-23); Calcium 9.3 mg/dL (8.7-10.4); Carbon Dioxide 22 mmol/L (20-31); Chloride 107 mmol/L (98-107); Glucose 104 mg/dL (74-106); Lipase 47 U/L (12-53); Sodium 140 mmol/L (136-145); Total Protein 6.7 g/dL (5.7-8.2)
[2025-01-06 08:46] LABS: Bilirubin, Total 0.2 mg/dL (0.2-1.0); Potassium 3.3 mmol/L (3.5-5.1)
[2025-01-06] MEDS ORDERED: NITROGLYCERIN 0.4 MG SL TAB SL PRN (12:45)
[2025-01-06] MEDS ORDERED: HYDROcodone-ACET 5/325MG TAB PO PRN (12:45)
--- NOTE | 2025-01-06 12:50 | DVHHP2 ---
History of Present Illness Reason for Visit: Intractable abdominal pain History of Present Illness 69-year-old female with a known history of hypertension, anxiety disorder, dyslipidemia, rheumatoid arthritis, was recently seen in the ER on12/30 for abdominal pain found to have colitis was discharged home with a close follow up as an outpatient. Patient's has not had any bowel movements for last three weeks and also complaining of 6/10 pain in the left lower quadrant. CT abdomen and pelvis possibly colitis/ileus and moderate amount of stool burden. Patient did say that she has some bowel movements with the people stone type. Patient also complaining of nausea and vomiting episodes few times. Denies any fevers chills. Cardiovascular: HTN, hyperipidemia Psych: Anxiety Rheumatologic: Rheumatoid arthritis Smoke: No ALCOHOL: none Review of Systems Review of Systems Twelve review of system are negative besides mentioned above. Allergies: Coded Allergies: NO KNOWN ALLERGIES (Unverified , 12/30/24) Medications Current Medications Medications Dose Ordered Sig/Jo Route Start Time Stop Time Status Last Admin Dose Admin Acetaminophen/ Hydrocodone Bitart 1 tab Q4HP PRN PO 01/06/25 12:45 UNV Enoxaparin Sodium 40 mg DAILY SC 01/07/25 10:00 UNV Acetaminophen 650 mg Q6HP PRN PO 01/06/25 12:45 UNV Morphine Sulfate 2 mg Q4HPRN PRN IV 01/06/25 12:45 UNV Nitroglycerin 0.4 mg Q5MINP PRN SL 01/06/25 12:45 UNV Morphine Sulfate 2 mg Q30M PRN IV 01/06/25 12:45 UNV Docusate Sodium 200 mg BID PO 01/06/25 22:00 UNV Sennosides 17.2 mg HS PO 01/06/25 22:00 UNV Lactulose 30 ml Q6HPRN PRN PO 01/06/25 12:45 UNV Polyethylene Glycol 17 gm DAILY PO 01/06/25 12:45 UNV Exam Vital Signs Vital Signs Date Time Temp Pulse Resp B/P (MAP) Pulse Ox O2 Delivery O2 Flow Rate FiO2 01/06/25 12:00 59 18 142/90 (107) 99 01/06/25 09:21 98.2 98.2 01/06/25 07:42 Room Air Exam HEENT pupils are reactive Neck is supple CV is S1-S2 regular rate and rhythm Respiratory diminished breath sounds bases GI positive bowel sounds but sluggish, soft mildly tender in the left lower quadrant with a minimal guarding no rigidity Extremity no edema THREAD WINDER no motor deficit Labs/Xrays Labs Test 01/06/25 08:00 01/06/25 07:37 Range/Units Urine Color Colorless Yellow Urine Clarity Clear Clear Urine pH 7.5 5.0-9.0 Urine Specific [place] 1.006 1.001-1.035 Urine Protein Negative Negative Urine Ketones Negative Negative Urine Blood Negative Negative /uL Urine Nitrite Negative Negative Urine Bilirubin Negative Negative Urine Urobilinogen Normal Negative mg/dL Urine Leukocyte Esterase Negative Negative /uL Urine RBC None seen 0 - 4 /hpf Urine Microscopic WBC 1 0-5 /HPF Urine Squamous Epithelial Cells Few <5 /hpf Urine Bacteria None seen None Seen /hpf Urine Glucose Normal Normal mg/dL White Blood Count 7.7 4.4-10.8 10^3/uL Red Blood Count 3.89 L 4.0-5.20 10^6/uL Hemoglobin 8.8 L 12.2-16.2 g/dL Hematocrit 27.7 L 36.0-46.0 % Mean Corpuscular Volume 71.2 L 80.0-100.0 fL Mean Corpuscular Hemoglobin 22.6 L 28.0-32.0 pg Mean Corpuscular Hemoglobin Concent 31.8 L 32.0-36.0 g/dL Red Cell Distribution Width 17.0 H 11.8-14.3 % Platelet Count 334 140-450 10^3/uL Mean Platelet Volume 7.5 6.9-10.8 fL Neutrophils (%) (Auto) 65.0 37.0-80.0 % Lymphocytes (%) (Auto) 25.5 10.0-50.0 % Monocytes (%) (Auto) 5.5 0.0-12.0 % Eosinophils (%) (Auto) 3.2 0.0-7.0 % Basophils (%) (Auto) 0.8 0.0-2.0 % Neutrophils # (Auto) 5.0 1.6-8.6 10 ^3/uL Lymphocytes # (Auto) 2.0 0.4-5.4 10 ^3/uL Monocytes # (Auto) 0.4 0-1.3 10 ^3/uL Eosinophils # (Auto) 0.2 0-0.8 10 ^3/uL Basophils # (Auto) 0.1 0-0.2 10 ^3/uL Nucleated Red Blood Cells 0.0 % Sodium Level 140 136-145 mmol/L Potassium Level 3.3 L 3.5-5.1 mmol/L Chloride Level 107 98-107 mmol/L Carbon Dioxide Level 22 20-31 mmol/L Anion Gap 11 5-15 Blood Urea Nitrogen 15 9-23 mg/dL Creatinine 0.90 0.550-1.02 mg/dL Glomerular Filtration Rate Calc 69 >90 mL/min BUN/Creatinine Ratio 16.7 10.0-20.0 Serum Glucose 104 74-106 mg/dL Calcium Level 9.3 8.7-10.4 mg/dL Total Bilirubin 0.2 0.2-1.0 mg/dL Aspartate Amino Transferase (AST) 18 13-40 U/L Alanine Aminotransferase (ALT) 12 7-40 U/L Alkaline Phosphatase 98 46-116 U/L Total Protein 6.7 5.7-8.2 g/dL Albumin 4.0 3.2-4.8 g/dL Lipase 47 12-53 U/L SEPSIS Sepsis Screen Date sepsis recognized/suspect: Jan 06, 2025 Time Sepsis recognized/suspect: 723 Recent Procedure: No On Antibiotic Therapy: No Respiratory Rate >20: No Heart Rate >90: No Temp<36 C (96.8 F) or >38.3 C: No SBP <90 or MAP <65 mmHG: No New Acute Mental Status Change: No Is the patient on CPAP, BIPAP,: No Physician Orders Ct Ab Pel Wo Con-No Oral Or Iv (01/06/25 07:23) Heplock Iv (01/06/25 07:23) Admit (01/06/25 12:36) Code Status (01/06/25 12:36) 2 Gm Sodium Diet (01/06/25 Lunch) Hydrocodone-Acet 5/325mg Tab (Burna (01/06/25 12:45) Enoxaparin Sodium (Lovenox) (01/07/25 10:00) Complete Blood Count (01/07/25 04:00) Condition: Stable (01/06/25 12:36) Acetaminophen Tablet (Tylenol Tablet) (01/06/25 12:45) Morphine Sulfate Injection (01/06/25 12:45) Nitroglycerin Sublingual (Ntrostat Subli (01/06/25 12:45) Morphine Sulfate Injection (01/06/25 12:45) Stat Ekg For Chest Pain (01/06/25 12:36) Notify Of Changes From Base (01/06/25 12:36) Career Orientation Teacher For 24 Hours (01/06/25 12:36) Emergency Dysrhythmia Protocol (01/06/25 12:36) Rhythm Strips Once Every Shift (01/06/25 12:36) Oxygen By Nasal Cannula (01/06/25 12:36) Docusate Sodium Capsule (Colace Capsule) (01/06/25 22:00) Senna Pod Tablet (Senokot Tablet) (01/06/25 22:00) Lactulose Oral (01/06/25 12:45) Polyethylene Glycol 17g Powder (Miralax (01/06/25 12:45) Potassium Effervesent Tab (Klor-Con/Ef) (01/06/25 12:45) * Gi [facility] Psychological Examiner (01/06/25 12:40) Vital Signs Date Time Temp Pulse Resp B/P (MAP) Pulse Ox O2 Delivery O2 Flow Rate FiO2 01/06/25 12:00 59 18 142/90 (107) 99 01/06/25 09:21 98.2 61 15 126/72 (90) 100 98.2 01/06/25 08:20 61 15 126/72 01/06/25 07:42 99.8 62 18 135/69 (91) 98 99.8 01/06/25 07:42 62 18 98 Room Air 01/06/25 07:41 62 15 135/69 01/06/25 07:21 98.6 68 18 140/84 100 98.6 Laboratory Tests Test 01/06/25 07:37 White Blood Count 7.7 10^3/uL (4.4-10.8) Medications Medications Dose Ordered Sig/Jo Route Start Time Stop Time Status Last Admin Dose Admin Morphine Sulfate 4 mg ONCE ONCE IV 01/06/25 07:30 01/06/25 07:31 DC 01/06/25 07:41 4 MG Ondansetron HCl 4 mg ONCE ONCE IV 01/06/25 07:30 01/06/25 07:31 DC 01/06/25 08:00 4 MG Sodium Chloride 500 ml @ 500 mls/hr Q1H ONCE IVB 01/06/25 07:30 01/06/25 08:29 DC 01/06/25 07:40 500 MLS/HR Assessment/Plan Assessment/Plan 69-year-old female with a known history of hypertension, anxiety disorder, dyslipidemia, rheumatoid arthritis who initially presented to the hospital with a intractable abdominal pain associated with the nausea and vomiting found to have 1. Intractable abdominal pain with the nausea and vomiting currently ileus/colitis 2. Descending colon/sigmoid colon colitis as well as proctitis 3. Constipation 4. Rheumatoid arthritis 5. Anxiety disorder 6. Dyslipidemia -admit to med surge, aggressive bowel regimen. GI consultation. -pain meds as needed, moderate stool burden if does not respond to aggressive bowel regimen, we will consider small bowel series. - Plan discussed with: Patient My Orders Orders - NIESHA WANG MD Procedure Category Date Status Time Admit ADMIT 01/06/25 Transmitted 12:36 Code Status CODE 01/06/25 Transmitted 12:36 2 Gm Sodium Diet DIET 01/06/25 Transmitted Lunch Hydrocodone-Acet PHA 01/06/25 Logged 5/325mg Tab (Burna 12:45 Enoxaparin Sodium PHA 01/07/25 Logged (Lovenox) 10:00 Complete Blood Count LAB 01/07/25 Verified 04:00 Condition: Stable [facility] 01/06/25 In Process 12:36 Acetaminophen Tablet [facility] 01/06/25 Logged (Tylenol Tablet) 12:45 Morphine Sulfate PHA 01/06/25 Logged Injection 12:45 Nitroglycerin [facility] 01/06/25 Logged Sublingual (Ntrostat 12:45 Morphine Sulfate [facility] 01/06/25 Logged Injection 12:45 Stat Ekg For Chest [facility] 01/06/25 In Process Pain 12:36 Notify Of Changes [facility] 01/06/25 In Process From Base 12:36 Career Orientation Teacher For [facility] 01/06/25 In Process 24 Hours 12:36 Emergency Dysrhythmia [facility] 01/06/25 In Process Protocol 12:36 Rhythm Strips Once [facility] 01/06/25 In Process Every Shift 12:36 Oxygen By Nasal RT 01/06/25 Transmitted Cannula 12:36 Docusate Sodium PHA 01/06/25 Logged Capsule (Colace 22:00 Senna Pod Tablet [facility] 01/06/25 Logged (Senokot Tablet) 22:00 Lactulose Oral [facility] 01/06/25 Logged 12:45 Polyethylene Glycol PHA 01/06/25 Logged 17g Powder (Miralax 12:45 Potassium Effervesent PHA 01/06/25 Logged Tab (Klor-Con/Ef) 12:45 * [facility] Psychological Examiner CONS 01/06/25 Transmitted 12:40 Problem List: (1) Nausea and vomiting (2) Non-specific colitis (3) Intractable abdominal pain Date of Service: Jan 06, 2025 Billing Provider: NIESHA WANG MD Common Visit Codes: NOT BILLABLE NIESHA WANG MD Jan 06, 2025 12:50
[2025-01-06] MEDS ORDERED: MORPHINE SULFATE 4 MG/ML SYR/VIAL IV PRN (13:30)
[2025-01-06 13:33] VITALS: BP 150/72; PULSE 56; RESP 18; TEMP 97.6; O2SAT 98
[2025-01-06] MEDS: POLYETHYLENE GLYCOL 17 GM PWDR PO SCH (14:05)
[2025-01-06] MEDS: POTASSIUM EFFERVESENT TAB 25 MEQ PO SCH (14:05)
[2025-01-06 20:00] VITALS: RESP 16; O2SAT 95
[2025-01-06] MEDS: MORPHINE SULFATE 4 MG/ML SYR/VIAL IV PRN (20:22)
[2025-01-06 21:00] VITALS: BP 120/75; PULSE 65; RESP 18; TEMP 98.2; O2SAT 96
[2025-01-06] MEDS: SENNA 8.6 MG TAB PO SCH (21:10)
[2025-01-06] MEDS: DOCUSATE SOD 100 MG CAP PO SCH (21:10)
[2025-01-07 01:00] VITALS: BP 121/66; PULSE 64; RESP 19; TEMP 98; O2SAT 97
[2025-01-07 06:57] LABS: Hemoglobin 8.7 g/dL (12.2-16.2)
[2025-01-07 07:00] LABS: Hematocrit 27.4 % (36.0-46.0); Mean Corpuscular Hemoglobin 22.6 pg (28.0-32.0); Mean Corpuscular Volume 71.5 fL (80.0-100.0); Nucleated Red Blood Cells % 0.2 %
[2025-01-07 09:00] VITALS: BP 137/79; PULSE 58; RESP 20; TEMP 98.8; O2SAT 99
[2025-01-07] MEDS: MILK OF MAGNESIA 30ML SUSP PO SCH (09:31)
[2025-01-07] MEDS: ENOXAPARIN SOD 40 MG/0.4 ML SYRINGE SC SCH (09:41)
[2025-01-07 13:00] VITALS: BP 133/79; PULSE 63; RESP 20; TEMP 98; O2SAT 98
[2025-01-07 13:25] LABS: Iron 23.0 ug/dL (50-170); Total Iron Binding Capacity 380.0 ug/dL (250-425)
[2025-01-07] MEDS: GOLYTELY 4L KIT PO ONE (16:00)
--- NOTE | 2025-01-07 16:44 | DVHPN2 ---
Subjective Patient is still complaining of constipation. 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 Medications Current Medications Medications Dose Ordered Sig/Jo Route Start Time Stop Time Status Last Admin Dose Admin Acetaminophen/ Hydrocodone Bitart 1 tab Q4HP PRN PO 01/06/25 12:45 Enoxaparin Sodium 40 mg DAILY SC 01/07/25 10:00 Acetaminophen 650 mg Q6HP PRN PO 01/06/25 12:45 Morphine Sulfate 2 mg Q4HPRN PRN IV 01/06/25 13:30 01/07/25 09:33 2 MG Nitroglycerin 0.4 mg Q5MINP PRN SL 01/06/25 12:45 Morphine Sulfate 2 mg Q30M PRN IV 01/06/25 13:30 Docusate Sodium 200 mg BID PO 01/06/25 22:00 01/07/25 09:31 200 MG Sennosides 17.2 mg HS PO 01/06/25 22:00 01/06/25 21:10 17.2 MG Lactulose 30 ml Q6HPRN PRN PO 01/06/25 12:45 Polyethylene Glycol 17 gm DAILY PO 01/06/25 12:45 01/07/25 09:30 17 GM Magnesium Hydroxide 30 ml DAILY PO 01/07/25 10:00 01/07/25 09:31 30 ML Ondansetron HCl 4 mg Q4HPRN PRN IV 01/07/25 15:15 Laboratory Results Laboratory Tests 01/06/25 07:37 01/07/25 06:02 Urinalysis Test 01/06/25 08:00 Urine Color Colorless (Yellow) Urine Clarity Clear (Clear) Urine pH 7.5 (5.0-9.0) Urine Specific [place] 1.006 (1.001-1.035) Urine Protein Negative (Negative) Urine Ketones Negative (Negative) Urine Blood Negative /uL (Negative) Urine Nitrite Negative (Negative) Urine Bilirubin Negative (Negative) Urine Urobilinogen Normal mg/dL (Negative) Urine Leukocyte Esterase Negative /uL (Negative) Urine RBC None seen /hpf (0 - 4) Urine Microscopic WBC 1 /HPF (0-5) Urine Squamous Epithelial Cells Few /hpf (<5) Urine Bacteria None seen /hpf (None Seen) Urine Glucose Normal mg/dL (Normal) Microbiology Microbiology Date/Time Source Procedure Growth Status 01/06/25 14:40 Nose MRSA Screen - Final Complete Assessment/Plan Assessment/Plan 69-year-old female with a known history of hypertension, anxiety disorder, dyslipidemia, rheumatoid arthritis who initially presented to the hospital with a intractable abdominal pain associated with the nausea and vomiting found to have 1. Intractable abdominal pain with the nausea and vomiting currently ileus/colitis 2. Descending colon/sigmoid colon colitis as well as proctitis 3. Constipation 4. Rheumatoid arthritis 5. Anxiety disorder 6. aggressive bowel regimen. GI consultation. -pain meds as needed, moderate stool burden if does not respond to aggressive bowel regimen, we will add GoLYTELY. - Plan discussed with: Patient My Orders Orders - NIESHA WANG MD Procedure Category Date Status Time Ondansetron Hcl PHA 01/07/25 In Process ([place]) 15:15 Date of Service: Jan 07, 2025 Billing Provider: NIESHA WANG MD Common Visit Codes: NOT BILLABLE NIESHA WANG MD Jan 07, 2025 16:44
[2025-01-07 16:53] VITALS: BP 139/77; PULSE 60; RESP 16; TEMP 98.1; O2SAT 99
--- NOTE | 2025-01-07 17:50 | DVHCONRES ---
Date Seen: Jan 07, 2025 Resident Creating Document: JHAJJ,SARPUNEET RESIDENT Referring Physician Dr. Santiago Reason for Consultation Ileus/colitis History of Present Illness Patient is a 69-year-old female with a medical history of hypertension, hyperlipidemia, rheumatoid arthritis presented to the hospital with a chief complaint of left lower quadrant pain for the last 3 weeks. Patient reported that she has been mostly constipated for the last 3 weeks and has has been having small bowel movements and continues to have pain in the left lower quadrant which worsens after eating food. Patient also reported of nausea but denies any vomiting. CT abdomen pelvis was done which showed moderate stool throughout the colon and cholelithiasis. Patient reportedly has never had a colonoscopy before, denies any history of colon cancer in the family and reports mother has breast cancer. She denies the use of narcotic pain medications Past Medical History As per HPI Past Surgical History Denies Family History: Cardiovascular disease G8 FATHER Malignant neoplasm of breast G8 MOTHER Family History No family history of colon cancer Mother has breast cancer Social History Denies current smoking, alcohol, drug use Allergies: Coded Allergies: NO KNOWN ALLERGIES (Unverified , 12/30/24) Home Meds Active Scripts Levofloxacin Hemihydrate (LEVAQUIN 500 MG) 500 Mg Tab, 500 MG PO DAILY for 5 Days, #5 TAB Prov:LIZZ MEREDITH BACK TACKER 12/30/24 Current Medications Current Medications Medications (Trade) Dose Ordered Sig/Jo Route PRN Reason Start Time Stop Time Status Last Admin Enoxaparin Sodium (Lovenox) 40 mg DAILY SC 01/07/25 10:00 Docusate Sodium (Colace Capsule) 200 mg BID PO 01/06/25 22:00 01/07/25 09:31 Sennosides (Senokot Tablet) 17.2 mg HS PO 01/06/25 22:00 01/06/25 21:10 Magnesium Hydroxide (Milk Of Magnesia Oral Suspension) 30 ml DAILY PO 01/07/25 10:00 01/07/25 09:31 Ondansetron HCl (Zofran) 4 mg Q4HPRN PRN IV NAUSEA / VOMITING 01/07/25 15:15 Review of Systems Patient reportedly had 1 bowel movement earlier this morning with the admission color and was solid pellet like stool No blood seen Continues to have mild nausea after she eats H&H is stable Vital Signs Vital Signs Date Time Temp Pulse Resp B/P (MAP) Pulse Ox O2 Delivery O2 Flow Rate FiO2 01/07/25 16:53 98.1 60 16 139/77 (97) 99 98.1 01/07/25 08:05 Room Air* 0 21 Physical Exam Gen - no pallor, no scleral icterus Skin - Patients skin is warm and dry. HEENT - normocephalic, atraumatic, dry mucous membranes. Neck - supple, no lymphadenopathy Pulmonary - B/L clear breath sounds cardiovascular - regular S1,S2 heard GI - soft abdomen with tenderness to palpation in the left lower quadrant. Bowel sounds normoactive. Neurological - Patient is alert and oriented x4. Labs/Diagnostic Data Labs Test 01/07/25 06:02 01/06/25 08:00 01/06/25 07:37 Range/Units White Blood Count 5.8 4.4-10.8 10^3/uL Red Blood Count 3.83 L 4.0-5.20 10^6/uL Hemoglobin 8.7 L 12.2-16.2 g/dL Hematocrit 27.4 L 36.0-46.0 % Mean Corpuscular Volume 71.5 L 80.0-100.0 fL Mean Corpuscular Hemoglobin 22.6 L 28.0-32.0 pg Mean Corpuscular Hemoglobin Concent 31.6 L 32.0-36.0 g/dL Red Cell Distribution Width 17.3 H 11.8-14.3 % Platelet Count 340 140-450 10^3/uL Mean Platelet Volume 7.3 6.9-10.8 fL Neutrophils (%) (Auto) 37.5 37.0-80.0 % Lymphocytes (%) (Auto) 49.1 10.0-50.0 % Monocytes (%) (Auto) 6.3 0.0-12.0 % Eosinophils (%) (Auto) 6.0 0.0-7.0 % Basophils (%) (Auto) 1.1 0.0-2.0 % Neutrophils # (Auto) 2.2 1.6-8.6 10 ^3/uL Lymphocytes # (Auto) 2.8 0.4-5.4 10 ^3/uL Monocytes # (Auto) 0.4 0-1.3 10 ^3/uL Eosinophils # (Auto) 0.3 0-0.8 10 ^3/uL Basophils # (Auto) 0.1 0-0.2 10 ^3/uL Nucleated Red Blood Cells 0.2 % Reticulocyte Count (auto) 1.12 0.5-1.5 % Iron Level 23 L 50-170 ug/dL Total Iron Binding Capacity 380 250-425 ug/dL Percent Iron Saturation 6.1 L 15-50 % Ferritin 6.7 L 10-291 ng/mL Urine Color Colorless Yellow Urine Clarity Clear Clear Urine pH 7.5 5.0-9.0 Urine Specific [place] 1.006 1.001-1.035 Urine Protein Negative Negative Urine Ketones Negative Negative Urine Blood Negative Negative /uL Urine Nitrite Negative Negative Urine Bilirubin Negative Negative Urine Urobilinogen Normal Negative mg/dL Urine Leukocyte Esterase Negative Negative /uL Urine RBC None seen 0 - 4 /hpf Urine Microscopic WBC 1 0-5 /HPF Urine Squamous Epithelial Cells Few <5 /hpf Urine Bacteria None seen None Seen /hpf Urine Glucose Normal Normal mg/dL Sodium Level 140 136-145 mmol/L Potassium Level 3.3 L 3.5-5.1 mmol/L Chloride Level 107 98-107 mmol/L Carbon Dioxide Level 22 20-31 mmol/L Anion Gap 11 5-15 Blood Urea Nitrogen 15 9-23 mg/dL Creatinine 0.90 0.550-1.02 mg/dL Glomerular Filtration Rate Calc 69 >90 mL/min BUN/Creatinine Ratio 16.7 10.0-20.0 Serum Glucose 104 74-106 mg/dL Calcium Level 9.3 8.7-10.4 mg/dL Total Bilirubin 0.2 0.2-1.0 mg/dL Aspartate Amino Transferase (AST) 18 13-40 U/L Alanine Aminotransferase (ALT) 12 7-40 U/L Alkaline Phosphatase 98 46-116 U/L Total Protein 6.7 5.7-8.2 g/dL Albumin 4.0 3.2-4.8 g/dL Lipase 47 12-53 U/L Microbiology Date/Time Source Procedure Growth Status 01/06/25 14:40 Nose MRSA Screen - Final Complete Assessment Acute abdominal pain likely due to constipation Constipation Microcytic hypochromic anemia likely due to iron-deficiency Cholelithiasis Plan - continue bowel regimen with the MiraLax, senna and lactulose - patient may benefit from a colonoscopy inpatient because of history of chronic constipation and on and off blood in stools, could be scheduled for Tuesday Plan discussed with Dr. Rabago Plan discussed with: Patient, Other (RAMA Soliz) VKIY RESENDIZ RESIDENT Jan 07, 2025 17:50
[2025-01-07 20:00] VITALS: RESP 16; O2SAT 95
[2025-01-07 21:00] VITALS: BP 138/77; PULSE 70; RESP 19; O2SAT 100
[2025-01-07] MEDS: ACETAMINOPHEN 325 MG TAB PO PRN (22:16)
[2025-01-07] MEDS: LORazepam 0.5 MG TAB PO ONE (22:16)
[2025-01-08] VITALS (7 sets, daily range): BP systolic 117–146; BP diastolic 72–83; PULSE 67–78; RESP 16–20; TEMP 98–98.1; O2SAT 95–100
[2025-01-08] MEDS: LACTULOSE 20Gm/30ML SOLN PO PRN (04:13)
[2025-01-08] MEDS: ONDANSETRON HCL 4 MG/2 ML VIAL IV PRN (06:46)
--- NOTE | 2025-01-08 17:13 | DVHPN2 ---
Subjective Patient is having some bowel movements after GoLYTELY, currently scheduled for colonoscopy in a.m.. 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 ATTORNEY no motor deficit Medications Current Medications Medications Dose Ordered Sig/Jo Route Start Time Stop Time Status Last Admin Dose Admin Acetaminophen/ Hydrocodone Bitart 1 tab Q4HP PRN PO 01/06/25 12:45 Enoxaparin Sodium 40 mg DAILY SC 01/07/25 10:00 Acetaminophen 650 mg Q6HP PRN PO 01/06/25 12:45 01/08/25 13:53 650 MG Morphine Sulfate 2 mg Q4HPRN PRN IV 01/06/25 13:30 01/07/25 09:33 2 MG Nitroglycerin 0.4 mg Q5MINP PRN SL 01/06/25 12:45 Morphine Sulfate 2 mg Q30M PRN IV 01/06/25 13:30 Docusate Sodium 200 mg BID PO 01/06/25 22:00 01/08/25 09:28 200 MG Sennosides 17.2 mg HS PO 01/06/25 22:00 01/07/25 22:16 17.2 MG Lactulose 30 ml Q6HPRN PRN PO 01/06/25 12:45 01/08/25 13:53 30 ML Polyethylene Glycol 17 gm DAILY PO 01/06/25 12:45 01/08/25 09:28 17 GM Magnesium Hydroxide 30 ml DAILY PO 01/07/25 10:00 01/08/25 09:28 30 ML Ondansetron HCl 4 mg Q4HPRN PRN IV 01/07/25 15:15 01/08/25 13:45 4 MG Laboratory Results Laboratory Tests 01/06/25 07:37 01/07/25 06:02 Urinalysis Test 01/06/25 08:00 Urine Color Colorless (Yellow) Urine Clarity Clear (Clear) Urine pH 7.5 (5.0-9.0) Urine Specific [place] 1.006 (1.001-1.035) Urine Protein Negative (Negative) Urine Ketones Negative (Negative) Urine Blood Negative /uL (Negative) Urine Nitrite Negative (Negative) Urine Bilirubin Negative (Negative) Urine Urobilinogen Normal mg/dL (Negative) Urine Leukocyte Esterase Negative /uL (Negative) Urine RBC None seen /hpf (0 - 4) Urine Microscopic WBC 1 /HPF (0-5) Urine Squamous Epithelial Cells Few /hpf (<5) Urine Bacteria None seen /hpf (None Seen) Urine Glucose Normal mg/dL (Normal) Microbiology Microbiology Date/Time Source Procedure Growth Status 01/06/25 14:40 Nose MRSA Screen - Final Complete Assessment/Plan Assessment/Plan 69-year-old female with a known history of hypertension, anxiety disorder, dyslipidemia, rheumatoid arthritis who initially presented to the hospital with a intractable abdominal pain associated with the nausea and vomiting found to have 1. Intractable abdominal pain with the nausea and vomiting currently ileus/colitis 2. Descending colon/sigmoid colon colitis as well as proctitis 3. Constipation 4. Rheumatoid arthritis 5. Anxiety disorder 6. aggressive bowel regimen. GI consultation. -GoLYTELY prep, colonoscopy in a.m.. - Plan discussed with: Patient Date of Service: Jan 08, 2025 Billing Provider: NIESHA WANG MD Common Visit Codes: NOT BILLABLE NIESHA WANG MD Jan 08, 2025 17:13
--- NOTE | 2025-01-08 17:25 | DVHPN2 ---
Progress Note Date Seen: Jan 08, 2025 Resident Creating Document: VIKY RESENDIZ RESIDENT Medical Necessity Reason Pt with a Central, PICC or Fol: No Subjective Review of Systems Patient was given GoLYTELY yesterday and had about 3-4 bowel movements Reports mild abdominal pain Tolerating diet well without any nausea vomiting Objective vital signs Vital Sign Date Time Temp Pulse Resp B/P (MAP) Pulse Ox O2 Delivery O2 Flow Rate FiO2 01/08/25 17:00 98.1 72 18 122/72 (89) 98 98.1 01/08/25 08:05 Room Air* 0 21 Total Intake and Output 01/07/25 01/07/25 01/08/25 15:00 23:00 07:00 Intake Total 1580 ml 1600 ml Balance 1580 ml 1600 ml medications Current Medications Medications Dose Ordered Sig/Jo Route Start Time Stop Time Status Last Admin Dose Admin Acetaminophen/ Hydrocodone Bitart 1 tab Q4HP PRN PO 01/06/25 12:45 Enoxaparin Sodium 40 mg DAILY SC 01/07/25 10:00 Acetaminophen 650 mg Q6HP PRN PO 01/06/25 12:45 01/08/25 13:53 650 MG Morphine Sulfate 2 mg Q4HPRN PRN IV 01/06/25 13:30 01/07/25 09:33 2 MG Nitroglycerin 0.4 mg Q5MINP PRN SL 01/06/25 12:45 Morphine Sulfate 2 mg Q30M PRN IV 01/06/25 13:30 Docusate Sodium 200 mg BID PO 01/06/25 22:00 01/08/25 09:28 200 MG Sennosides 17.2 mg HS PO 01/06/25 22:00 01/07/25 22:16 17.2 MG Lactulose 30 ml Q6HPRN PRN PO 01/06/25 12:45 01/08/25 13:53 30 ML Polyethylene Glycol 17 gm DAILY PO 01/06/25 12:45 01/08/25 09:28 17 GM Magnesium Hydroxide 30 ml DAILY PO 01/07/25 10:00 01/08/25 09:28 30 ML Ondansetron HCl 4 mg Q4HPRN PRN IV 01/07/25 15:15 01/08/25 13:45 4 MG Examination Gen - no pallor, no scleral icterus Skin - Patients skin is warm and dry. HEENT - normocephalic, atraumatic, dry mucous membranes. Neck - supple, no lymphadenopathy Pulmonary - B/L clear breath sounds cardiovascular - regular S1,S2 heard GI - soft abdomen with tenderness to palpation in the left lower quadrant. Bowel sounds normoactive. Neurological - Patient is alert and oriented x4. laboratory and microbiology Laboratory Tests 01/07/25 06:02 01/06/25 07:37 Test 01/06/25 07:37 Range/Units Serum Glucose 104 74-106 mg/dL Microbiology Date/Time Source Procedure Growth Status 01/06/25 14:40 Nose MRSA Screen - Final Complete Problem List/Assessment/Plan Problem List/Assessment/Plan Acute abdominal pain likely due to constipation Constipation Microcytic hypochromic anemia likely due to iron-deficiency Cholelithiasis Plan - continue bowel regimen with the MiraLax, senna and lactulose - colonoscopy scheduled for tomorrow Plan discussed with Dr. Rabago Plan discussed with: Patient, Other (RN) My Orders My Orders Orders - VIKY RESENDIZ RESIDENT Procedure Category Date Status Time Obtain Consent For: ORDERS 01/08/25 Transmitted 16:14 Clear Liq Diet DIET 01/08/25 Transmitted Dinner Magnesium Citrate PHA 01/09/25 In Process Solution (Citrate Of M 06:00 Tap Water Enema ORDERS 01/09/25 Transmitted 08:00 Obtain Consent For OC 01/09/25 In Process Anesthesia 16:14 Magnesium Citrate PHA 01/08/25 In Process Solution (Citrate Of M 18:00 VIKY RESENDIZ RESIDENT Jan 08, 2025 17:25
[2025-01-08] MEDS: MAGNESIUM CITRATE SOLUTION 300 ML BTL PO ONE (17:57)
[2025-01-09] VITALS (7 sets, daily range): BP systolic 115–135; BP diastolic 62–87; PULSE 59–75; RESP 13–18; TEMP 97.8–98.5; O2SAT 97–100
[2025-01-09] MEDS: MAGNESIUM CITRATE SOLUTION 300 ML BTL PO ONE (05:28)
--- NOTE | 2025-01-09 06:18 | DVH ---
CHEST RADIOGRAPH Indication: pre op Technique: Single frontal view of the chest was obtained Comparison: None FINDINGS: Lines and Tubes: None Lungs: No focal consolidation. Pleura: No effusion. No pneumothorax. Cardiomediastinal contours: Unremarkable Bones: No acute osseous abnormality. IMPRESSION: 1. No acute cardiopulmonary disease.
[2025-01-09 06:44] LABS: INR 1.02 (0.9-1.15); Partial Thromboplastin Time 25.1 SEC (24.5-34.5); Prothrombin Time 10.8 sec (9.3-11.8)
[2025-01-09] MEDS ORDERED: PROPOFOL 10 MG/ML 20 ML IV ONE ×2 (14:48→15:00)
[2025-01-09] MEDS ORDERED: LIDOCAINE 1% INJ PF 5ML AMP ONE (14:48)
--- NOTE | 2025-01-09 15:18 | DVHOP2 ---
Operative Report DATE OF OPERATION: 01/09/25 PROCEDURE: Colonoscopy with biopsy and Janee ink injection. PREOPERATIVE INDICATION: The patient is a 69 -year-old female undergoing colonoscopy for anemia constipation and rectal bleeding POSTOPERATIVE DIAGNOSES: 1. Patient had a 5-7 cm circumferential ulcerated distal sigmoid mass starting from about 7 cm above the anal verge and extending to about 12-14 cm above the anal verge 2. There was some mild mucosal edema and superficial area of ulceration in the sigmoid about 5-10 cm above the mass from which biopsies were obtained 3. Occasional scattered diverticular disease and 1+ internal hemorrhoids otherwise normal examination up to the cecum PROCEDURE PERFORMED BY: Noy Rabago M.D. SCOPE: Olympus videocolonoscope. ASA CLASS: 2 PREOPERATIVE MEDICATIONS: Mac al, Boo Man PROCEDURE IN DETAIL: After obtaining an informed consent, the patient was placed on left lateral decubitus position. She was then sedated with the above medications. A rectal examination was performed that was normal. The colonoscope was then passed through the anus into the rectosigmoid and through the descending, transverse, and ascending colon up to the cecum with visualization of the appendiceal orifice, base of the cecum and the ileocecal valve. The colonoscope was then withdrawn. . There was occasional scattered diverticular disease. There was mild colitis and superficial ulceration and mucosal edema of the sigmoid colon 10 cm above the mass from which biopsies were obtained The patient did have a distal sigmoid mass starting at about 7-8 cm above the anal verge and extending to about 12-14 cm above the anal verge This was circumferential ulcerated partially obstructing. Biopsies were obtained and Janee ink injection was placed in the proximal and distal margin of the mass Patient had 1+ internal hemorrhoids, The patient tolerated the procedure well without difficulty. WITHDRAWAL TIME: 9 minutes QUALITY OF THE PREP: [place] Bowel Prep score: 9. COMPLICATIONS : None SPECIMENS: Proximal sigmoid ulceration biopsies Distal sigmoid/rectosigmoid mass biopsies DISPOSITION: Transfer back to the floor Stable PLAN: 1. Clear liquid diet 2. Oncology consult for possible chemo 3. Surgical consult to consider low anterior resection 4. Check CEA level and monitor labs 5. Repeat colonoscopy in 1-2 years after complete treatment and resolution of current suspected malignancy NOY RABAGO MD Jan 09, 2025 15:18
--- NOTE | 2025-01-09 15:53 | DVHPN2 ---
Subjective Patient underwent colonoscopy which shows evidence of circumferential thickened and ulcerated sigmoidal mass concerning for malignancy. General surgery will be consulted. 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 Medications Current Medications Medications Dose Ordered Sig/Jo Route Start Time Stop Time Status Last Admin Dose Admin Acetaminophen/ Hydrocodone Bitart 1 tab Q4HP PRN PO 01/06/25 12:45 Enoxaparin Sodium 40 mg DAILY SC 01/07/25 10:00 01/09/25 09:49 40 MG Acetaminophen 650 mg Q6HP PRN PO 01/06/25 12:45 01/08/25 21:19 650 MG Morphine Sulfate 2 mg Q4HPRN PRN IV 01/06/25 13:30 01/07/25 09:33 2 MG Nitroglycerin 0.4 mg Q5MINP PRN SL 01/06/25 12:45 Morphine Sulfate 2 mg Q30M PRN IV 01/06/25 13:30 Docusate Sodium 200 mg BID PO 01/06/25 22:00 01/09/25 09:49 200 MG Sennosides 17.2 mg HS PO 01/06/25 22:00 01/08/25 21:19 17.2 MG Lactulose 30 ml Q6HPRN PRN PO 01/06/25 12:45 01/08/25 13:53 30 ML Polyethylene Glycol 17 gm DAILY PO 01/06/25 12:45 01/09/25 09:49 17 GM Magnesium Hydroxide 30 ml DAILY PO 01/07/25 10:00 01/09/25 09:48 30 ML Ondansetron HCl 4 mg Q4HPRN PRN IV 01/07/25 15:15 01/08/25 13:45 4 MG Laboratory Results Laboratory Tests 01/06/25 07:37 01/07/25 06:02 Coagulation Test 01/09/25 05:38 Prothrombin Time 10.8 sec (9.3-11.8) Prothrombin Time INR 1.02 (0.9-1.15) Activated Partial Thromboplast Time 25.1 SEC (24.5-34.5) Urinalysis Test 01/06/25 08:00 Urine Color Colorless (Yellow) Urine Clarity Clear (Clear) Urine pH 7.5 (5.0-9.0) Urine Specific [place] 1.006 (1.001-1.035) Urine Protein Negative (Negative) Urine Ketones Negative (Negative) Urine Blood Negative /uL (Negative) Urine Nitrite Negative (Negative) Urine Bilirubin Negative (Negative) Urine Urobilinogen Normal mg/dL (Negative) Urine Leukocyte Esterase Negative /uL (Negative) Urine RBC None seen /hpf (0 - 4) Urine Microscopic WBC 1 /HPF (0-5) Urine Squamous Epithelial Cells Few /hpf (<5) Urine Bacteria None seen /hpf (None Seen) Urine Glucose Normal mg/dL (Normal) Microbiology Microbiology Date/Time Source Procedure Growth Status 01/06/25 14:40 Nose MRSA Screen - Final Complete Assessment/Plan Assessment/Plan 69-year-old female with a known history of hypertension, anxiety disorder, dyslipidemia, rheumatoid arthritis who initially presented to the hospital with a intractable abdominal pain associated with the nausea and vomiting found to have 1. Intractable abdominal pain with the nausea and vomiting currently ileus/colitis 2. Descending colon/sigmoid colon colitis as well as proctitis status post colonoscopy showed evidence of ulcerated circumferential thickened sigmoid mass concerning for malignancy 3. Constipation 4. Rheumatoid arthritis 5. Anxiety disorder 6. aggressive bowel regimen. GI consultation. -patient is status post colonoscopy showed evidence of sigmoidal ulcerated mass concerning for malignancy general surgery will be consulted outpatient follow up with the Oncology if biopsy confirms colon cancer - Plan discussed with: Patient My Orders Orders - NIESHA WANG MD Procedure Category Date Status Time Chest Xray 1 View XY 01/09/25 Resulted 04:51 Date of Service: Jan 09, 2025 Billing Provider: NIESHA WANG MD Common Visit Codes: NOT BILLABLE NIESHA WANG MD Jan 09, 2025 15:52
[2025-01-10] VITALS (7 sets, daily range): BP systolic 110–144; BP diastolic 47–76; PULSE 58–65; RESP 16–18; TEMP 36.6; O2SAT 94–99
--- NOTE | 2025-01-10 11:43 | DVHINCON2 ---
Date of service: Jan 10, 2025 Family History: Cardiovascular disease G8 FATHER Malignant neoplasm of breast G8 MOTHER Allergies: Coded Allergies: NO KNOWN ALLERGIES (Unverified , 12/30/24) Home Meds Active Scripts Levofloxacin Hemihydrate (LEVAQUIN 500 MG) 500 Mg Tab, 500 MG PO DAILY for 5 Days, #5 TAB Prov:LIZZ MEREDITH OPERATIONS ADMINISTRATOR 12/30/24 Current Medications Current Medications Medications (Trade) Dose Ordered Sig/Jo Route PRN Reason Start Time Stop Time Status Last Admin Iron Sucrose 110 ml @ 110 mls/hr DAILY@1200 IV 01/10/25 12:00 01/14/25 12:59 Vital Signs Vital Signs Date Time Temp Pulse Resp B/P (MAP) Pulse Ox O2 Delivery O2 Flow Rate FiO2 01/10/25 08:00 60 18 95 Room Air* 0 21 01/10/25 06:20 98.3 144/66 (92) 98.3 Labs/Diagnostic Data Labs Test 01/10/25 05:44 01/09/25 05:38 01/07/25 06:02 01/06/25 08:00 Range/Units Carcinoembryonic Antigen 1.77 <=5.0 ng/mL Prothrombin Time 10.8 9.3-11.8 sec Prothrombin Time INR 1.02 0.9-1.15 Activated Partial Thromboplast Time 25.1 24.5-34.5 SEC White Blood Count 5.8 4.4-10.8 10^3/uL Red Blood Count 3.83 L 4.0-5.20 10^6/uL Hemoglobin 8.7 L 12.2-16.2 g/dL Hematocrit 27.4 L 36.0-46.0 % Mean Corpuscular Volume 71.5 L 80.0-100.0 fL Mean Corpuscular Hemoglobin 22.6 L 28.0-32.0 pg Mean Corpuscular Hemoglobin Concent 31.6 L 32.0-36.0 g/dL Red Cell Distribution Width 17.3 H 11.8-14.3 % Platelet Count 340 140-450 10^3/uL Mean Platelet Volume 7.3 6.9-10.8 fL Neutrophils (%) (Auto) 37.5 37.0-80.0 % Lymphocytes (%) (Auto) 49.1 10.0-50.0 % Monocytes (%) (Auto) 6.3 0.0-12.0 % Eosinophils (%) (Auto) 6.0 0.0-7.0 % Basophils (%) (Auto) 1.1 0.0-2.0 % Neutrophils # (Auto) 2.2 1.6-8.6 10 ^3/uL Lymphocytes # (Auto) 2.8 0.4-5.4 10 ^3/uL Monocytes # (Auto) 0.4 0-1.3 10 ^3/uL Eosinophils # (Auto) 0.3 0-0.8 10 ^3/uL Basophils # (Auto) 0.1 0-0.2 10 ^3/uL Nucleated Red Blood Cells 0.2 % Reticulocyte Count (auto) 1.12 0.5-1.5 % Iron Level 23 L 50-170 ug/dL Total Iron Binding Capacity 380 250-425 ug/dL Percent Iron Saturation 6.1 L 15-50 % Ferritin 6.7 L 10-291 ng/mL Urine Color Colorless Yellow Urine Clarity Clear Clear Urine pH 7.5 5.0-9.0 Urine Specific [place] 1.006 1.001-1.035 Urine Protein Negative Negative Urine Ketones Negative Negative Urine Blood Negative Negative /uL Urine Nitrite Negative Negative Urine Bilirubin Negative Negative Urine Urobilinogen Normal Negative mg/dL Urine Leukocyte Esterase Negative Negative /uL Urine RBC None seen 0 - 4 /hpf Urine Microscopic WBC 1 0-5 /HPF Urine Squamous Epithelial Cells Few <5 /hpf Urine Bacteria None seen None Seen /hpf Urine Glucose Normal Normal mg/dL Test 01/06/25 07:37 Range/Units Sodium Level 140 136-145 mmol/L Potassium Level 3.3 L 3.5-5.1 mmol/L Chloride Level 107 98-107 mmol/L Carbon Dioxide Level 22 20-31 mmol/L Anion Gap 11 5-15 Blood Urea Nitrogen 15 9-23 mg/dL Creatinine 0.90 0.550-1.02 mg/dL Glomerular Filtration Rate Calc 69 >90 mL/min BUN/Creatinine Ratio 16.7 10.0-20.0 Serum Glucose 104 74-106 mg/dL Calcium Level 9.3 8.7-10.4 mg/dL Total Bilirubin 0.2 0.2-1.0 mg/dL Aspartate Amino Transferase (AST) 18 13-40 U/L Alanine Aminotransferase (ALT) 12 7-40 U/L Alkaline Phosphatase 98 46-116 U/L Total Protein 6.7 5.7-8.2 g/dL Albumin 4.0 3.2-4.8 g/dL Lipase 47 12-53 U/L Microbiology Date/Time Source Procedure Growth Status 01/06/25 14:40 Nose MRSA Screen - Final Complete Assessment [id number] C/O MILD ABD APIN CONSTIPATION AFEBRILE VSS ABD SOFT NON TENDER BM + COLONOSCOPY POSSIBLE RECTOSIGMOID NEOPLASM PATH PENDING CONSIDER ELECTIVE LEFT COLON RESECTION POSSIBLE COLOSTOMY PT AGREES CLEARED FOR DISCHARGE NURSE AT BEDSIDE Plan discussed with: Patient JERSEY ELDRIDGE MD Jan 10, 2025 11:43
[2025-01-10 12:04] LABS: Hemoglobin 9.2 g/dL (12.2-16.2); Nucleated Red Blood Cells % 0.1 %
[2025-01-10 12:06] LABS: Potassium 3.6 mmol/L (3.5-5.1); Sodium 143 mmol/L (136-145)
[2025-01-10 12:07] LABS: Hematocrit 30.1 % (36.0-46.0); Mean Corpuscular Hemoglobin 22.2 pg (28.0-32.0); Mean Corpuscular Volume 72.3 fL (80.0-100.0)
[2025-01-10 12:07] LABS: Anion Gap 11 (5-15); Carbon Dioxide 23 mmol/L (20-31)
[2025-01-10 12:09] LABS: Calcium 8.5 mg/dL (8.7-10.4); Chloride 109 mmol/L (98-107)
--- NOTE | 2025-01-10 12:10 | DVHINCON2 ---
DATE OF CONSULTATION: 01/10/2025 HISTORY OF PRESENT ILLNESS: The patient is 69 years old, coming with history of hypertension, anxiety disorder with mild abdominal pain and constipation. She was seen in the ER on 12/30, found to have colitis, was discharged and then comes back with no bowel activity and she got admitted. CAT scan was done and it indicated colitis, ileus. Colonoscopy was done and a possibility of a neoplasm was found in the rectosigmoid location, but right now she is having no active bleeding. No bowel issues. She is having bowel activity and no nausea or vomiting. No hematochezia or melena. No bleeding per rectum. PAST MEDICAL HISTORY: Hypertension. PAST SURGICAL HISTORY: Two childbirths. PHYSICAL EXAMINATION: VITAL SIGNS: Afebrile, stable signs. HEENT: With no evidence of pallor, cyanosis, or jaundice. NECK: Supple, nontender with no thyromegaly or lymphadenopathy. CHEST AND LUNGS: Clear. HEART: Within normal limits. ABDOMEN: Soft, minimally tender. No rebound. EXTREMITIES: Unremarkable. NEUROLOGIC: Intact. Colonoscopy report reveals a 5.7 cm circumferential ulcerated distal sigmoid mass 7 cm above the anal verge and the concern is possibility of neoplasm and the pathology is pending. CLINICAL IMPRESSION: Rule out sigmoid neoplasm/cancer. PLAN: The plan would be to consider elective surgery based upon ongoing evaluation and once the pathology report is available and then the patient agrees on the plan. The benefits and risks have been discussed and she will be doing a followup with me in my office and have elective sigmoid resection and possible colostomy. Benefits and risks have been discussed and she consents for that. MD MG Antunez/WHITNEY/BRENNA TID: [id number] RECEIPT: [id number] cc:
[2025-01-10 12:12] LABS: BUN/Creatinine Ratio 17.6 (10.0-20.0); Blood Urea Nitrogen 13 mg/dL (9-23); Glucose 78 mg/dL (74-106)
[2025-01-10 12:13] LABS: Magnesium 2.5 mg/dL (1.6-2.6)
[2025-01-10] MEDS ORDERED: LACT10SO3 PO (12:34)
[2025-01-10] MEDS ORDERED: SENN-105 PO (12:34)
--- NOTE | 2025-01-10 12:39 | DVHDS2 ---
Discharge Summary Date of Admission Jan 06, 2025 at 12:36 Date of Discharge: Jan 10, 2025 Labs/Diagnostic Data: Laboratory Results Test 01/10/25 05:47 01/10/25 05:44 01/09/25 05:38 01/07/25 06:02 Sodium Level 143 mmol/L (136-145) Potassium Level 3.6 mmol/L (3.5-5.1) Chloride Level 109 mmol/L (98-107) Carbon Dioxide Level 23 mmol/L (20-31) Anion Gap 11 (5-15) Blood Urea Nitrogen 13 mg/dL (9-23) Creatinine 0.74 mg/dL (0.550-1.02) Glomerular Filtration Rate Calc 87 mL/min (>90) BUN/Creatinine Ratio 17.6 (10.0-20.0) Serum Glucose 78 mg/dL (74-106) Calcium Level 8.5 mg/dL (8.7-10.4) Magnesium Level 2.5 mg/dL (1.6-2.6) White Blood Count 5.3 10^3/uL (4.4-10.8) Red Blood Count 4.17 10^6/uL (4.0-5.20) Hemoglobin 9.2 g/dL (12.2-16.2) Hematocrit 30.1 % (36.0-46.0) Mean Corpuscular Volume 72.3 fL (80.0-100.0) Mean Corpuscular Hemoglobin 22.2 pg (28.0-32.0) Mean Corpuscular Hemoglobin Concent 30.7 g/dL (32.0-36.0) Red Cell Distribution Width 17.2 % (11.8-14.3) Platelet Count 429 10^3/uL (140-450) Mean Platelet Volume 8.0 fL (6.9-10.8) Neutrophils (%) (Auto) 49.9 % (37.0-80.0) Lymphocytes (%) (Auto) 39.6 % (10.0-50.0) Monocytes (%) (Auto) 5.0 % (0.0-12.0) Eosinophils (%) (Auto) 4.7 % (0.0-7.0) Basophils (%) (Auto) 0.8 % (0.0-2.0) Neutrophils # (Auto) 2.6 10 ^3/uL (1.6-8.6) Lymphocytes # (Auto) 2.1 10 ^3/uL (0.4-5.4) Monocytes # (Auto) 0.3 10 ^3/uL (0-1.3) Eosinophils # (Auto) 0.2 10 ^3/uL (0-0.8) Basophils # (Auto) 0 10 ^3/uL (0-0.2) Nucleated Red Blood Cells 0.1 % Carcinoembryonic Antigen 1.77 ng/mL (<=5.0) Prothrombin Time 10.8 sec (9.3-11.8) Prothrombin Time INR 1.02 (0.9-1.15) Activated Partial Thromboplast Time 25.1 SEC (24.5-34.5) Reticulocyte Count (auto) 1.12 % (0.5-1.5) Iron Level 23 ug/dL (50-170) Total Iron Binding Capacity 380 ug/dL (250-425) Percent Iron Saturation 6.1 % (15-50) Ferritin 6.7 ng/mL (10-291) Test 01/06/25 08:00 01/06/25 07:37 Urine Color Colorless (Yellow) Urine Clarity Clear (Clear) Urine pH 7.5 (5.0-9.0) Urine Specific Harmony 1.006 (1.001-1.035) Urine Protein Negative (Negative) Urine Ketones Negative (Negative) Urine Blood Negative /uL (Negative) Urine Nitrite Negative (Negative) Urine Bilirubin Negative (Negative) Urine Urobilinogen Normal mg/dL (Negative) Urine Leukocyte Esterase Negative /uL (Negative) Urine RBC None seen /hpf (0 - 4) Urine Microscopic WBC 1 /HPF (0-5) Urine Squamous Epithelial Cells Few /hpf (<5) Urine Bacteria None seen /hpf (None Seen) Urine Glucose Normal mg/dL (Normal) Total Bilirubin 0.2 mg/dL (0.2-1.0) Aspartate Amino Transferase (AST) 18 U/L (13-40) Alanine Aminotransferase (ALT) 12 U/L (7-40) Alkaline Phosphatase 98 U/L (46-116) Total Protein 6.7 g/dL (5.7-8.2) Albumin 4.0 g/dL (3.2-4.8) Lipase 47 U/L (12-53) Other Laboratory Tests 01/10/25 05:47 01/10/25 05:44 Brief Hx & Hospital Course: 69-year-old female with a known history of hypertension, anxiety disorder, dyslipidemia, rheumatoid arthritis who initially presented to the hospital with a intractable abdominal pain associated with the nausea and vomiting found to have severe stool burden in the rectosigmoid junction. Patient was started on laxatives and bowel regimen. Patient is started having bowel movements. GI was consulted who recommended colonoscopy. Patient underwent colonoscopy which shows evidence of ulcerative sigmoidal mass highly suspicious for malignancy. Biopsy has been done. Patient needs to follow up on the colon biopsy as an outpatient with the PCP, and Dr. Guzman Rabago GI specialist, also Dr. Mecca Rabago general management specialist for lactic sigmoid colon resection laparoscopically outpatient. Patient is currently understand verbalized understanding and agreeable to plan. Patient was explained in detail Queta sigmoidal mass might be a cancer and she understand verbalized understanding and agreed to follow up with the GI and General surgery. Condition at Discharge: Stable Final Diagnosis/Problems List 69-year-old female with a known history of hypertension, anxiety disorder, dyslipidemia, rheumatoid arthritis who initially presented to the hospital with a intractable abdominal pain associated with the nausea and vomiting found to have 1. Intractable abdominal pain with the nausea and vomiting currently ileus/colitis 2. Descending colon/sigmoid colon colitis as well as proctitis status post colonoscopy showed evidence of ulcerated circumferential thickened sigmoid mass concerning for malignancy 3. Constipation 4. Rheumatoid arthritis 5. Anxiety disorder 6. aggressive bowel regimen. GI consultation. Discharge Disposition: Home with Health Services SN[facility] Discharge Will this Physician continue t: No Discharge Instruct/Medications Diet: Cardiac 2g Na,low cholest Activity: No Restrictions, As Tolerated Follow Up/Referral: Please follow up with the PCP, Dr. Guzman Rabago for follow up on colon biopsy -please follow up with Dr. Mecca Rabago for outpatient elective sigmoid colon resection. Medications: Resume medication, new prescription as prescribed. New Medications: Lactulose (Lactulose) 10 Gm/15 Ml Cora 30 ML PO Q6HPRN PRN, #1200 ML Senna (Senna) 8.6 Mg Tab 17.2 MG PO HS PRN, #30 TAB Discontinued Medications: Levofloxacin Hemihydrate (Levaquin 500 Mg) 500 Mg Tab 500 MG PO DAILY for 5 Days, #5 TAB Scheduled Levofloxacin Hemihydrate (Levaquin 500 Mg), 500 MG PO DAILY Scheduled PRN Lactulose (Lactulose), 30 ML PO Q6HPRN PRN Senna (Senna), 17.2 MG PO HS PRN Discharge Statement: "Patient was advised to return to the ER or call 911 if any headaches, dizziness, shortness of breath, chest pain, abdominal pain, bleeding, fevers, or worsening of medical condition. Patient was counseled about treatment plan, medications, possible side effects, patientverbalized understanding. All questions were answered to the best of my ability. This discharge took greater then 30 minutes in planning, reviewing documentation, counseling the patient, and discussing with other team members." ASSESSMENT ASSESSMENT Assessment 69-year-old female with a known history of hypertension, anxiety disorder, dyslipidemia, rheumatoid arthritis who initially presented to the hospital with a intractable abdominal pain associated with the nausea and vomiting found to have 1. Intractable abdominal pain with the nausea and vomiting currently ileus/colitis 2. Descending colon/sigmoid colon colitis as well as proctitis status post colonoscopy showed evidence of ulcerated circumferential thickened sigmoid mass concerning for malignancy 3. Constipation 4. Rheumatoid arthritis 5. Anxiety disorder 6. aggressive bowel regimen. GI consultation. Date of Service: Jan 10, 2025 Billing Provider: NIESHA WANG MD Common Visit Codes: NOT BILLABLE NIESHA WANG MD Jan 10, 2025 12:39
--- NOTE | 2025-01-10 12:57 | DVHPN2 ---
Progress Note Date Seen: Jan 10, 2025 Resident Creating Document: VIKY RESENDIZ RESIDENT Medical Necessity Reason Pt with a Central, PICC or Fol: No Subjective Review of Systems Patient reported to have loose bowel movement Reports abdominal pain, nausea or vomiting has improved Objective vital signs Vital Sign Date Time Temp Pulse Resp B/P (MAP) Pulse Ox O2 Delivery O2 Flow Rate FiO2 01/10/25 09:00 97.9 60 18 117/47 (70) 94 97.9 01/10/25 08:00 Room Air* 0 21 Total Intake and Output 01/09/25 01/09/25 01/10/25 15:00 23:00 07:00 Intake Total 100 ml 650 ml Balance 100 ml 650 ml medications Current Medications Medications Dose Ordered Sig/Jo Route Start Time Stop Time Status Last Admin Dose Admin Acetaminophen/ Hydrocodone Bitart 1 tab Q4HP PRN PO 01/06/25 12:45 Enoxaparin Sodium 40 mg DAILY SC 01/07/25 10:00 01/10/25 10:29 40 MG Acetaminophen 650 mg Q6HP PRN PO 01/06/25 12:45 01/10/25 00:01 650 MG Morphine Sulfate 2 mg Q4HPRN PRN IV 01/06/25 13:30 01/07/25 09:33 2 MG Nitroglycerin 0.4 mg Q5MINP PRN SL 01/06/25 12:45 Morphine Sulfate 2 mg Q30M PRN IV 01/06/25 13:30 Docusate Sodium 200 mg BID PO 01/06/25 22:00 01/10/25 10:29 200 MG Sennosides 17.2 mg HS PO 01/06/25 22:00 01/09/25 22:07 17.2 MG Lactulose 30 ml Q6HPRN PRN PO 01/06/25 12:45 01/08/25 13:53 30 ML Polyethylene Glycol 17 gm DAILY PO 01/06/25 12:45 01/10/25 10:29 17 GM Magnesium Hydroxide 30 ml DAILY PO 01/07/25 10:00 01/10/25 10:29 30 ML Ondansetron HCl 4 mg Q4HPRN PRN IV 01/07/25 15:15 01/10/25 05:12 4 MG Iron Sucrose 110 ml @ 110 mls/hr DAILY@1200 IV 01/10/25 12:00 01/14/25 12:59 Examination Gen - no pallor, no scleral icterus Skin - Patients skin is warm and dry. HEENT - normocephalic, atraumatic, dry mucous membranes. Neck - supple, no lymphadenopathy Pulmonary - B/L clear breath sounds cardiovascular - regular S1,S2 heard GI - soft abdomen with tenderness to palpation in the left lower quadrant. Bowel sounds normoactive. Neurological - Patient is alert and oriented x4. laboratory and microbiology Laboratory Tests 01/10/25 05:47 01/10/25 05:44 Test 01/10/25 05:47 Range/Units Serum Glucose 78 74-106 mg/dL Microbiology Date/Time Source Procedure Growth Status 01/06/25 14:40 Nose MRSA Screen - Final Complete Problem List/Assessment/Plan Problem List/Assessment/Plan Acute abdominal pain likely due to constipation Constipation likely due ulcerated distal sigmoid mass ? Colon cancer Microcytic hypochromic anemia likely due to iron-deficiency Cholelithiasis Plan - colonoscopy done on 01/09 showed 5-7 cm circumferential ulcerated distal sigmoid mass starting from about 7 cm above the anal verge and extending to about 12-14 cm above the anal verge mild mucosal edema and superficial area of ulceration in the sigmoid about 5-10 cm above the mass from which biopsies were obtained Occasional scattered diverticular disease and 1+ internal hemorrhoids otherwise normal examination up to the cecum - surgical consultation done inpatient is agreeable for elective left colon resection possible colostomy - follow up in the GI outpatient clinic and with the surgery in the outpatient clinic - patient to be discharged on laxatives Plan discussed with Dr. Rabago Plan discussed with: Patient, Other (RAMA Jay) My Orders My Orders Orders - VIKY RESENDIZ Procedure Category Date Status Time Iron Sucrose Complex PHA 01/10/25 In Process (Venofer) 12:00 Dietary Evaluation Review Comments: 2GNA texture as tolerated diet with iron MVI supplementation Expected Outcomes/Goals: Recovered GI function, Improved nutrition status and physical strength VIKY RESENDIZ RESIDENT Jan 10, 2025 12:57
[2025-01-10] MEDS: IRON SUCROSE COMPLEX 110 ML IV SCH (13:09)
--- NOTE | 2025-01-15 08:07 | ECG ---
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
== END 2025-01-10 19:46 | disposition home health service (06) | DRG 394 ==
LOC: EDSEX 07:14 → EDBD 07:14 → ER 07:14 → OVERFLOW 12:36 → WEST WING 16:37
PROVIDERS: ADMIT Internal Medicine; ATTEND Internal Medicine
PROC: 0DBN8ZX Excision of Sigmoid Colon, Via Natural or Artificial Opening Endoscopic, Diagnostic (ICD-10-PCS; principal; 2025-01-09 14:49)
DX: K63.3 Ulcer of intestine (principal); K56.7 Ileus, unspecified; D50.9 Iron deficiency anemia, unspecified; M06.9 Rheumatoid arthritis, unspecified; I10 Essential (primary) hypertension; K52.9 Noninfective gastroenteritis and colitis, unspecified; K80.20 Calculus of gallbladder without cholecystitis without obstruction; K57.30 Diverticulosis of large intestine without perforation or abscess without bleeding; K59.00 Constipation, unspecified; K64.8 Other hemorrhoids; F41.9 Anxiety disorder, unspecified; E78.5 Hyperlipidemia, unspecified; Z82.49 Family history of ischemic heart disease and other diseases of the circulatory system; Z80.3 Family history of malignant neoplasm of breast
CPT/HCPCS: 36415; 45380; 71045; 74176; 80048; 80053; 81001; 82378; 82728; 83540; 83550; 83690; 83735; 85025; 85045; 85610; 85730; 86850; 86900; 86901; 87081; 96361; 96374; 96375; G0378; J1756; J2405; J2704